=== PATIENT | female | born 1950 ===

== ENCOUNTER 2021-11-02 15:20 | Emergency (ER) | payer MEDICARE, SELFPAY ==
--- NOTE | 2021-11-02 15:30 | ED.URI ---
HPI - URI/Sore Throat General Chief Complaint: Upper Respiratory Infection Stated Complaint: cough aches and sore throat Time Seen by Provider: 11/02/21 15:31 Source: patient and RN notes reviewed History of Present Illness HPI Narrative: Patient is a 71-year-old female who presents the urgent with complaints of headache, chills, sore throat, cough and body aches. Patient states that started 5 days ago and does seem to be getting better. Patient denies any fever, nausea, vomiting. States that she has been taking Claritin and Coricidin. Patient has been vaccinated for Covid and denies of any other illness in the home. No other complaints. No acute distress noted. Patient aware of the plan of care. Some parts of this dictation were generated by voice recognition software and may contain typographical and/or grammatical inaccuracies. Related Data Home Medications Medication Instructions Recorded Confirmed aspirin 81 mg PO DAILY 11/02/21 11/02/21 estradiol 0.5 mg PO DAILY 11/02/21 11/02/21 fluticasone propionate See Rx Instructions .ROUTE .COMPLEX 11/02/21 11/02/21 gabapentin 300 mg PO BID 11/02/21 11/02/21 irbesartan-hydrochlorothiazide 1 tablet PO DAILY 11/02/21 11/02/21 magnesium 200 mg PO DAILY 11/02/21 11/02/21 meloxicam 7.5 mg PO BID 11/02/21 11/02/21 multivitamin [Daily Multi-Vitamin] 1 tablet PO DAILY 11/02/21 11/02/21 omeprazole 20 mg PO DAILY 11/02/21 11/02/21 Allergies Allergy/AdvReac Type Severity Reaction Status Date / Time ketorolac [From Toradol] Allergy Rash Verified 11/02/21 15:44 Review of Systems Review of Systems: CONSTITUTIONAL: Denies fever, chills, or sweats. EYES: Denies visual changes, redness, or discharge. ENT: Reports rhinorrhea, congestion CARDIOVASCULAR: Denies chest pain, palpitations, or edema. RESPIRATORY: Reports of cough without dyspnea GASTROINTESTINAL: Denies abdominal pain, nausea, vomiting, or diarrhea. GENITOURINARY: Denies dysuria or hematuria. SKIN: Denies rash or itching. MUSCULOSKELETAL: Denies back pain, joint pain, or myalgia. NEUROLOGIC: Reports of mild posterior headache All other systems reviewed are negative, except as documented in HPI. PMFSH Comments At the time of my signature, I reviewed and agree with the nursing past medical, surgical, social, and family history. There is no relevant family history pertinent to the patient complaint. Exam Narrative: GENERAL: This is a well-nourished, well-developed patient, in no apparent distress. HEAD: normocephalic, atraumatic. EYES: PERRL. Sclera clear/white. Vision is grossly intact. EARS: External ears normal, auditory canals clear and without drainage, TMs normal without perforation. Hearing grossly intact. NOSE: External nose normal with no obvious nasal discharge. Bilateral erythemic nares with clear yellow rhinorrhea THROAT: Mucous membranes moist, posterior pharynx clear. Moderate postnasal drainage NECK: Neck supple, CARDIOVASCULAR: Regular rate and rhythm without murmurs, gallops, or rubs. RESPIRATORY: Clear to auscultation. Breath sounds equal bilaterally. No wheezes, rales, or rhonchi. SKIN: warm, intact with no suspicious lesions or rash, good texture and turgor. NEURO: awake, alert, and oriented to person, place and time. There were no obvious focal neurologic abnormalities. EXTREMITIES: No clubbing, cyanosis, or edema. Course Course Level of Care: Express Care Visit Vital Signs Vital signs: Vital Signs Temperature 98.3 F 11/02/21 15:35 Pulse Rate 100 11/02/21 15:35 Respiratory Rate 18 11/02/21 15:35 Blood Pressure 134/63 11/02/21 15:35 Pulse Oximetry 98 11/02/21 15:35 Temperature 98.3 F 11/02/21 15:55 Pulse Rate 100 11/02/21 15:55 Respiratory Rate 18 11/02/21 15:55 Blood Pressure 134/63 11/02/21 15:55 Pulse Oximetry 98 11/02/21 15:55 Reviewed MDM - URI/Sore Throat MDM Narrative Medical decision making narrative: Advised the patient to continue Claritin and start
[2021-11-02 15:35] VITALS: BP 134/63; PULSE 100; RESP 18; TEMP 36.8; O2SAT 98
[2021-11-02 15:55] VITALS: BP 134/63; PULSE 100; RESP 18; TEMP 36.8; O2SAT 98
== END 2021-11-02 16:00 | disposition home or self-care (01) ==
PROVIDERS: Emergency Provider Nurse Practitioner Family; PCP Family Medicine
DX: J32.9 Chronic sinusitis, unspecified (principal); I10 Essential (primary) hypertension; K21.9 Gastro-esophageal reflux disease without esophagitis; M19.90 Unspecified osteoarthritis, unspecified site
CPT/HCPCS: 99213; G0463

== ENCOUNTER 2025-09-20 11:44 | Emergency (ER) | payer MEDICARE, SELFPAY ==
[2025-09-20 11:50] VITALS: BP 125/71; PULSE 82; RESP 20; TEMP 36.3; O2SAT 95
--- OUTSIDE RECORDS SUMMARY | 2025-09-20 12:21 | XMS_ITS | Clinical Summary ---
[facility] Address [address] [place] [address] Care Team Providers Care Stage Technician Name Role Phone Laura Aly MD Primary Care Provider Allergies Active Allergy Reactions Criticality Noted Date Comments Tramadol Rash Medium 11/04/2018 Medications omeprazole (PriLOSEC) 20 mg capsule take 1 capsule by oral route every day before a meal 0 0 3 Active multivitamin (MULTI-DAY) tablet tablet take 1 tablet by oral route every day with food 0 0 6 Active aspirin (ASPIR-81) 81 mg tablet take 1 tablet by oral route every day 0 0 6 Active calcium carbonate (OS-FARHAD) 1,500 mg (600 mg of elemental calcium) tablet Take by mouth. Active azelastine (ASTELIN) 137 mcg (0.1 %) nasal spray 1 Active fluticasone propionate (FLONASE) 50 mcg/actuation nasal spray 1 Active meloxicam (MOBIC) 7.5 mg tablet Take 1 tablet (7.5 mg total) by mouth daily as needed 0 Active magnesium gluconate 200 mg tabletIndicati ons:hypomagnes emia 1 tablet (200 mg total) Active loratadine (CLARITIN) 10 mg tablet Take 10 mg by mouth daily Active gabapentin (NEURONTIN) 300 mg capsule 1 1 Active ciclopirox (PENLAC) 8 % solution APPLE TO AFFECTED NAILS AT BEDTIME 3 Active ALPRAZolam (XANAX) 0.25 mg tablet Take 1 tablet (0.25 mg total) by mouth 3 (three) times a day as needed 3 Active sulfamethoxazo le-trimethopri m (BACTRIM DS) 800-160 mg per tablet Take 1 tablet by mouth 2 (two) times a day 10 tablet 5 Active estradioL (ESTRACE) 0.5 mg tablet TAKE 1 TABLET EVERY DAY 90 tablet 3 5 Active estradioL (ESTRACE) 0.5 mg tabletIndicati ons:Vasomotor Symptoms associated with Menopause Take 1 tablet (0.5 mg total) by mouth daily Take 1 tablet (0.5 mg) by mouth daily. 90 tablet 2 5 025 Discontinued Active Problems Problem Noted Date Diagnosed Date Hormone replacement therapy 10/25/2022 Assessment & Plan (01/14/2025 1:23 PM CDT): Plan to continue current dose of oral estradiol 0.5 mg daily as directed. Revisited risks associated with HRT today, including increase risk of DVT/PE, stroke. Assessment & Plan (11/05/2023 8:26 AM XM1 TANK DRIVER): Risks and benefits of hormone replacement (HRT) for vasomotor symptoms related to menopause discussed. Patient aware risks associated with HRT include increased risk of blood clots, heart attack, stroke, and increased risk of breast cancer. Patient aware risks of continuing HRT after the age of 65 increase. Patient verbalizes understanding of risk and benefits and wishes to proceed with HRT. High risk medication consent signed. Assessment & Plan (10/25/2022 8:50 PM XM1 TANK DRIVER): Risks vs benefits of HRT discussed such as increased risk of blood clots leading to possible heart attack, stroke, and increased risk of breast cancer; pt. verbalizes understanding and wishes to proceed with HRT. Refill on estradiol sent to pharmacy. Kidney disorder 02/06/2014 Overview (12/26/2016): Kidney problem Hypertension 02/06/2014 Overview (12/26/2016): Hypertension Hyperlipidemia 02/06/2014 Overview (12/27/2016): Hyperlipemia Diabetes mellitus 02/06/2014 Overview (12/27/2016): Diabetes mellitus Disorder of liver 02/06/2014 Overview (12/27/2016): Liver disease Encounters Date Type Department Care Team Description 08/30/2025 Telephone [place] [facility] [address] [place] [address] Paty Deutsch WRINGER OPERATOR Add Hysterectomy from Last 3 Months Surgical History Surgery Date Site/Laterality Comments OTHER SURGICAL HISTORY 1962 : spontaneous OTHER SURGICAL HISTORY 1962 : OTHER SURGICAL HISTORY 1966 : OTHER SURGICAL HISTORY 1984 : TOTAL ABDOMINAL HYSTERECTOMY W/ BILATERAL SALPINGOOPHORECTOMY ABDULLAHI with BSO BLADDER SUSPENSION Bladder tie up Medical History Medical History Date Comments Hypertension hypertension Hx Other Medical 1962 ; Outc ome: Unknown sex Hx Other Medical 1962 ; Outc ome: Male Hx Other Medical 1966 ; Outc ome: Female Hx Other Medical 1984 ; Outc ome: Male Family History Medical History Relation Name Comments Breast cancer Cousin Cancer, breast ; Colon cancer Father Cancer, colon; Liver cancer Father's Sister Cancer, live r; Diabetes Mother Diabetes mellit us; Hypertension Mother Hypertension; Other Mother's Brother heart murmu r; Diabetes Mother's Sister Diabetes yaquelin litus; Relation Name Status Comments Cousin Father Father's Sister Mother Mother's Brother Mother's Sister Social History Tobacco Use Types Packs/Day Years Used Date Smoking Tobacco: Never Smokeless Tobacco: Never Tobacco Cessation:Counseling Given: Not Answered Alcohol Use Standard Drinks/Week Comments Yes 0 (1 standard drink = 0.6 oz pur e alcohol) occasionally PHQ-2 Answer Date Recorded PHQ-2 Total Score (If total score is 3 or more points, staff should administer the PHQ-9) 0 11/04/2023 Comments No Sex and Gender Information Value Date Recorded Sex Assigned at Not on file Legal Sex Female 1:15 PM XM1 TANK DRIVER Gender Identity Not on file Sexual Orientation Not on file Obstetrics History Para Term AB IAB SAB Ectopic Multiple Livin g Live Births 4 3 3 1 1 3 3 Date Outcome GA Total Labor Labor/2nd/3rd Weight Sex Type Anes PTL Dee A1 A5 Name Clin Term Vag-S pont Living Term Vag-S pont Living Term Vag-S pont Living SAB Last Filed Vital Signs Vital Sign Reading Time Taken Comments Blood Pressure 116/62 01/14/2025 10:55 AM CDT Pulse 76 08/25/2021 12:01 PM XM1 TANK DRIVER Temperature 36.6 C (97.8 F) 07/20/2021 11:03 AM CDT Respiratory Rate 18 07/20/2021 11:03 AM CDT Oxygen Saturation 93% 07/20/2021 11:03 AM CDT Inhaled Oxygen Concentration - - Weight 87.5 kg (193 lb) 01/14/2025 10:55 AM CDT Height 157.5 cm (5' 2) 01/14/2025 10:55 AM CDT Body Mass Index 35.3 01/14/2025 10:55 AM CDT Plan of Treatment Health Maintenance Due Date Last Done Comments Albumin Creatinine Ratio, Urine 1949 Fall Risk Assessment 1949 Hepatitis C Screening 1949 Dilated Eye Exam 1949 Foot Exam 1949 Lipid Panel 1949 DTaP/Tdap/Td Vaccine (1 - Tdap) 1960 Hepatitis B Screening 1967 Osteoporosis Screening-Bone Density Scan 01/10/2023 01/10/2021, 01/10/2021, 03/15/2018, Additional history exists Depression Screening 11/04/2024 11/04/2023, 10/23/2022, 01/03/2021, Additional history exists Well Visit 65+ 11/04/2024 11/04/2023 Covid-19 Vaccine (3 - 2024-2 6 season) 2025 01/16/2021, 12/19/2020 Influenza Vaccine (#1) 2025 , 07/16/2021, 06/24/2020 Hemoglobin A1C 07/16/2025 01/14/2025 eGFR 01/14/2026 01/14/2025 Pneumococcal vaccine 65+ Completed 08/08/2018, 1011/2015 Zoster Vaccine Completed 06/19/2022, 03/30/2022 Breast Cancer Screening-Mammogram Discontinued 12/16/2024, 12/16/2024, 02/04/2023, Additional history exists Procedures Procedure Name Priority Date/Time Associated Diagnosis Comments EGFR Routine 01/14/2025 11:46 AM CDT Heat intolerance Thinning hair Personal history of diabetes mellitus Other fatigue HEMOGLOBIN A1C Routine 01/14/2025 11:46 AM CDT Heat intolerance Thinning hair Personal history of diabetes mellitus Other fatigue SCREENING MAMMOGRAM BILATERAL W JASON Schedule Routine, Read Routine (OP Routine) 11/30/2021 DEXA AXIAL SKELETON BONE DENSITY 1 OR MORE SITES Schedule Routine, Read Routine (OP Routine) 03/15/2018 Asymptomatic menopausal state Screening for osteoporosis from Last 3 Months or Most Recently Relevant to Health Maintenance Results * (ABNORMAL) eGFR (01/14/2025 11:46 AM CDT) eGFR 48(L) >=60 mL/min/1. 73 m2 Comment: Interpretive Data Reference Interval Normal >/= 90 mL/min/1.73m2 Mildly decreased* 60 - 89 mL/min/1.73m2 Mildly to moderately decreased 45 - 59 mL/min/1.73m2 Moderately to severely decreased 30 - 44 mL/min/1.73m2 Severely decreased 15 - 29 mL/min/1.73m2 Kidney Failure < 15 mL/min/1.73m2 *Relative to young adult level Estimated glomerular filtration rate is determined by the 2020 CKD-EPI equation recommended by the National Kidney Foundation (A Unifying Approach to GFR Estimation: Recommendations of the NKF-ASK Task Force on Reassessing the Inclusion of Race in Diagnosing Kidney Disease, JASN 2020). The CKD-EPI equation should not be used for patients with unstable renal function and has not been validated in children and those over 70. Current interpretive data was last reviewed 2021. Blood 01/14/2025 11:4 6 AM CDT 01/14/2025 12:56 PM CDT us Paty Deutsch NP LAB BLOOD ORDERABLES Final Resul t [facility] ([place]) [address] Department [place] [address] * (ABNORMAL) Hemoglobin A1c (01/14/2025 11:46 AM CDT) Hgb A1C 6.9(H) 4.0 - 5.6 % Estimated Average Glucose 151 mg/dL [facility] ([place]) Comment: The ADA recommends reporting an estimated Average Glucose (eAG) with all Hemoglobin A1c results using the equation derived from a study of 507 normal and diabetic adults. Minority populations were underrepresented and children were not included. (Diabetes Care 31:7711-6852, 2008). The eAG is not equivalent to a fasting glucose. Blood 01/14/2025 11:4 6 AM CDT 01/14/2025 12:56 PM CDT us Paty Deutsch NP LAB BLOOD ORDERABLES Final Resul t [facility] ([place]) [address] [facility] [place] [address] * Screening Mammogram Bilateral W Jason (11/30/2021) Anatomical Region Laterality Modality Breast Bilateral Mammography us Jihan Esparza NP IMG MAMMO PROCEDURES Phuong l Result * Dexa Axial Skeleton Bone Density 1 Or 2 Site (03/15/2018) Anatomical Region Laterality Modality Body N/A Radiographic Felicia ging us Jihan Esparza NP IMG DXA PROCEDURES Final Result from Last 3 Months or Most Recently Relevant to Health Maintenance Insurance [employer] MEDICARE HMO Care Teams Stage Technician Relationship Specialty Start Date End Date Laura Aly MD PCP - General 07/20/21
--- OUTSIDE RECORDS SUMMARY | 2025-09-20 12:21 | XMS_ITS | Encounter Summary ---
Author Organization [facility] Address [address] [place] [phone] Phone Care Team Providers Care Water And Sewer Systems Supervisor Name Role Phone aLura Aly MD Primary Care Provider Vern Galvez MD Unavailable Melissa Dominguez RN Unavailable UnavailAnali Davis APRN, MANAGER MERCHANDISING Primary Care Prov ider Reason for Visit * Reason Comments Medication Refill Encounter Details Date Type Department Care Team (Late st Contact Info) Description 03/21/2023 Refill [facility] [address] [place] [address] [place] [id number] [place] [address] Medication Refill Social History Tobacco Use Types Packs/Day Years Used Date Smoking Tobacco: Never Smokeless Tobacco: Never Alcohol Use Standard Drinks/Week Comments Yes 0 (1 standard drink = 0.6 oz pur e alcohol) occasionally holidays PHQ-2 Answer Date Recorded Total Score - Questions 1-9 0 01/0 01/2022 Sexually Active Control Partners Comments Not Currently Comments No Sex and Gender Information Value Date Recorded Sex Assigned at Not on file Legal Sex Female 7:42 PM CDT Gender Identity Not on file Sexual Orientation Not on file 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 Requested Prescriptions Pending Prescriptions Disp Refills gabapentin (NEURONTIN) 300 MG Capsule [Pharmacy Med Name: GABAPENTIN 300 MG Capsule] 90 Capsule 1 Sig: TAKE 1 CAPSULE THREE TIMES DAILY Not Delegated - Anticonvulsants Excluding Benzodiazepines Protocol Failed - 03/21/2023 11:16 AM Failed - This refill cannot be delegated Passed - Visit with relevant provider in past 12 months or upcoming 90 days Recent Visits Date Type Provider Dept 01/08/23 Office Visit Laura Aly MD [facility] 10/10/22 Office Visit Laura Aly MD [facility] 08/28/22 Office Visit Laura Aly MD [facility] 07/17/22 Office Visit Laura Aly MD [facility] 06/05/22 Office Visit Laura Aly MD [facility] 04/26/22 Office Visit Laura Aly MD [facility] 04/12/22 Office Visit Laura Aly MD [facility] Showing recent visits within past 365 days and meeting all other requirements Future Appointments Date Type Provider Dept 04/02/23 Appointment Laura Aly MD [facility] Showing future appointments within next 90 days and meeting all other requirements documented in this encounter Plan of Treatment Upcoming Encounters Date Type Department Care Team (Late st Contact Info) Description 10/25/2025 9:45 AM GERENTOLOGICAL PHYSIOTHERAPIST Office Visit [facility] - Family Medicine - [place] [address] [place] [address] Anali Wells APRN, MANAGER MERCHANDISING [address] [address] documented as of this encounter Visit Diagnoses Not on filedocumented in this encounter Additional Health Concerns Infection Onset Date Last Indicated Resolved Time COVID - 19 07/25/2023 07/25/2023 08/04/2023 12:1 7 AM GERENTOLOGICAL PHYSIOTHERAPIST COVID - 19 10/04/2023 10/04/2023 10/14/2023 12:1 6 AM GERENTOLOGICAL PHYSIOTHERAPIST Assessment Noted Time PHQ-9 Depression Total Score: 0 11/22/19 21 2:41 PM GERENTOLOGICAL PHYSIOTHERAPIST documented as of this encounter Care Teams Water And Sewer Systems Supervisor Relationship Specialty Start Date End Date Laura Aly MD PCP - General Family Medicine 07/27/20 11/25/23 Anali Wells APRN, MANAGER MERCHANDISING [id number] [address] PCP - General Advanced Practice Nurse 11/26/23 Vern Galvez MD Consulting Physician Cardiovascular Disease - Cardiology 06/01/22 09/24/24 Melissa Self RN ID Registered Nurse Cardiology 07/09/22 09/24/24 documented as of this encounter
--- OUTSIDE RECORDS SUMMARY | 2025-09-20 12:21 | XMS_ITS | Encounter Summary ---
Author Organization [facility] Address [address] [place] [address] Phone Care Team Providers Care Energy Efficient Site Manager Name Role Phone Laura Aly MD Primary Care Provider Vern Galvez MD Unavailable Melissa Dominguez RN Unavailable UnavailAnali Davis APRN, PROSPECTING DRILLER Primary Care Prov ider Reason for Visit * Reason Comments Medication Refill Encounter Details Date Type Department Care Team (Late st Contact Info) Description 10/10/2023 Refill [facility] - Family Medicine [facility] [address] [place] [id number] [place] [id number] [place] [address] Medication Refill Social History Tobacco Use Types Packs/Day Years Used Date Smoking Tobacco: Never Smokeless Tobacco: Never Alcohol Use Standard Drinks/Week Comments Yes 0 (1 standard drink = 0.6 oz pur e alcohol) occasionally holidays [facility] Utilities Answer Date Recorded In the past 12 months has [employer], oil, or water [employer] threatened to shut off services in your home? No 10/04/2023 Social Connection and Isolation Panel Answer Date Recorded In a typical week, how many times do you talk on the phone with family, friends, or neighbors? More than three times a week 10/04/2023 Frequency of Social Gatherin gs with Friends and Family Not on file 10/04/2023 Attends Voodoo Services Not on file 10/04 Active Member of Clubs or Organizations Not on f ile 10/04/2023 Attends Club or Organization Meetings Not on nancy e 10/04/2023 Marital Status Not on file 10/04/2023 AUDIT-C Answer Date Recorded Q1: How often do you have a drink containing alc ohol? Never 10/04/2023 Average Number of Drinks Not on file 024 Frequency of Binge Drinking Not on file 09/23 Overall Financial Resource Strain (CARDIA) Answe r Date Recorded How hard is it for you to pa y for the very basics like food, housing, medical care, and heating? Not hard at all 10/04/2023 PHQ-2 Answer Date Recorded Total Score - Questions 1-9 0 09/23 [facility] - Occupational Stress Questionnaire Answer Date Recorded Do you feel stress - tense, restless, nervous, or anxious, or unable to sleep at night because your mind is troubled all the time - these days? Only a little 10/04/2023 Exercise Vital Sign Answer Date Recorde d On average, how many days pe r week do you engage in moderate to strenuous exercise (like a brisk walk)? 4 days Minutes of Exercise per Session Not on file 10/04/2023 Hunger Vital Sign Answer Date Recorded Within the past 12 months, y ou worried that your food would run out before you got the money to buy more. Never true 10/04/19 24 Within the past 12 months, t he food you bought just didn't last and you didn't have money to get more. Never true 10/04/2023 PRAPARE - Transportation Answer Date Re corded In the past 12 months, has l ack of transportation kept you from medical appointments or from getting medications? No 09/23 In the past 12 months, has l ack of transportation kept you from meetings, work, or from getting things needed for daily living? No 10/04/2023 Housing Stability Vital Sign Answer Felipe e Recorded In the last 12 months, was t here a time when you were not able to pay the mortgage or rent on time? No 10/04/2023 Number of Places Lived in the Last Year Not on f ile 10/04/2023 Unstable Housing in the Last Year Not on file 10/04/2023 Sexually Active Control Partners Comments Not Currently [...] encounter Miscellaneous Notes * Telephone Encounter - Kady Torres RN - 10/11/2023 8:32 AM CARBONIZER TESTER Medication failed the protocol, provider to review and approve the medication order if appropriate. Requested Prescriptions Pending Prescriptions Disp Refills gabapentin (NEURONTIN) 300 MG Capsule [Pharmacy Med Name: GABAPENTIN 300 MG Capsule] 90 Capsule 3 Sig: TAKE 1 CAPSULE THREE TIMES DAILY Not Delegated - Anticonvulsants Excluding Benzodiazepines Protocol Failed - 10/10/2023 1:10 PM Failed - This refill cannot be delegated Passed - Visit with relevant provider in past 12 months or upcoming 90 days Recent Visits Date Type Provider Dept 10/04/23 Office Visit Sigrid Diez PAC [facility] 07/25/23 Office Visit Laura Aly MD [facility] 04/02/23 Office Visit Laura Aly MD [facility] 01/08/23 Office Visit [facility] MD [facility] [place] Showing recent visits within past 365 days and meeting all other requirements Future Appointments No visits were found meeting these conditions. Showing future appointments within next 90 days and meeting all other requirements ONIZER TESTER documented in this encounter Plan of Treatment Upcoming Encounters Date Type Department Care Team (Late st Contact Info) Description 10/25/2025 9:45 AM CARBONIZER TESTER Office Visit [facility] - Family Medicine - [place] [address] [place] [address] Anali Wells APRN, PROSPECTING DRILLER [address] [address] documented as of this encounter Visit Diagnoses Not on filedocumented in this encounter Additional Health Concerns Infection Onset Date Last Indicated Resolved Time COVID - 19 10/04/2023 10/04/2023 10/14/2023 12:1 6 AM CARBONIZER TESTER Assessment Noted Time PHQ-9 Depression Total Score: 0 10/04/19 4:15 PM CARBONIZER TESTER documented as of this encounter Care Teams Energy Efficient Site Manager Relationship Specialty Start Date End Date Laura Aly MD PCP - General Family Medicine 07/27/20 11/25/23 Anali Wells APRN, PROSPECTING DRILLER [id number] [address] PCP - General Advanced Practice Nurse 11/26/23 Vern Galvez MD Consulting Physician Cardiovascular Disease - Cardiology 06/01/22 09/24/24 Melissa Self RN [place] Registered Nurse Cardiology 07/09/22 09/24/24 documented as of this encounter
--- OUTSIDE RECORDS SUMMARY | 2025-09-20 12:21 | XMS_ITS | Encounter Summary ---
Author Organization [facility] Address [address] [place] [address] Phone Care Team Providers Care Sueding Machine Tender Name Role Phone Laura Aly MD Primary Care Provider [phone] Vern Galvez MD Unavailable Melissa Dominguez RN Unavailable UnavailAnali Davis APRN, CONSULTING SME Primary Care Prov ider Reason for Visit * Reason Comments Medication Refill Encounter Details Date Type Department Care Team (Late st Contact Info) Description 11/05/2022 Refill [facility] [address] [place] [address] [place] [address] [place] [address] Medication Refill Social History Tobacco Use Types [...] file Not on file Not on file COVID-19 Exposure Response Date Recorded In the last 10 days, have yo u been in contact with someone who was confirmed or suspected to have Coronavirus/COVID-19? No / Unsure 10/10/2022 11:02 AM CURB HOP documented as of this encounter Miscellaneous Notes * Telephone Encounter - Julee Krishnan RN - 11/05/2022 1:32 PM CST Medication failed the protocol, provider to review and approve the medication order if appropriate. Requested Prescriptions Pending Prescriptions Disp Refills meloxicam (MOBIC) 7.5 MG Tablet [Pharmacy Med Name: MELOXICAM 7.5 MG Tablet] 90 Tablet 0 Sig: TAKE 1 TABLET TWICE DAILY NEEDED FOR MODERATE OR MORE SEVERE PAIN NSAIDs Protocol Failed - 11/05/2022 10:24 AM Failed - Normal serum creatinine in past 12 months CREATININE, BLOOD Date Value Ref Range Status 04/26/2022 1.14 (H) 0.60 - 1.10 mg/dL Final Failed - Not delegated, patient not between 1 and 65 years of age Passed - Visit with relevant provider in past 12 months or upcoming 90 days Recent Visits Date Type Provider Dept 10/10/22 Office Visit Laura Aly MD [facility] 08/28/22 Office Visit Laura Aly MD [facility] 07/17/22 Office Visit Laura Aly MD [facility] 06/05/22 Office Visit Laura Aly MD [facility] 04/26/22 Office Visit Laura Aly MD [facility] 04/12/22 Office Visit Laura Aly MD [facility] 03/01/22 Office Visit Laura Aly MD [facility] 01/29/22 Office Visit Luis M Angel APRN, CONSULTING SME [facility] 01/04/22 Office Visit Sigrid Diez PAC [facility] Showing recent visits within past 365 days and meeting all other requirements Future Appointments Date Type Provider Dept 01/08/23 Appointment Laura Aly MD [facility] Showing future appointments within next 90 days and meeting all other requirements Passed - No matching NSAID med order in past 45 days No matching medication orders between 09/21/2022 1:32 PM and 11/05/2022 1:32 PM Passed - AST less than 55 or ALT less than 90 in past 12 months SGOT (AST) Date Value Ref Range Status 04/26/2022 13 <=32 U/L Final SGPT (ALT) Date Value Ref Range Status 04/26/2022 16 <=41 U/L Final Passed - HGB greater than 10 or HCT greater than 30 in past 12 months HEMOGLOBIN (HGB) Date Value Ref Range Status 04/26/2022 12.9 12.0 - 15.8 g/dL Final HEMATOCRIT (HCT) Date Value Ref Range Status 04/26/2022 40.4 36.0 - 47.0 % Final HOP documented in this encounter Plan of Treatment Upcoming Encounters Date Type Department Care Team (Late st Contact Info) Description 10/25/2025 9:45 AM CURB HOP Office Visit [facility] - Family Medicine [facility] [address] [place] [phone] Anali Wells, SUPERVISOR RUBBER COVERING, CONSULTING SME [address] [phone] documented as of this encounter Visit Diagnoses Not on filedocumented in this encounter Additional Health Concerns Infection Onset Date Last Indicated Resolved Time COVID - 19 07/25/2023 07/25/2023 08/04/2023 12:1 7 AM CURB HOP COVID - 19 10/04/2023 10/04/2023 10/14/2023 12:1 6 AM CURB HOP Assessment Noted Time PHQ-9 Depression Total Score: 0 11/22/19 21 2:41 PM CURB HOP documented as of this encounter Care Teams Sueding Machine Tender Relationship Specialty Start Date End Date Laura Aly MD PCP - General Family Medicine 07/27/20 11/25/23 Anali Wells APRN, CONSULTING SME [address] [address] PCP - General Advanced Practice Nurse 11/26/23 Vern Galvez MD Consulting Physician Cardiovascular Disease - Cardiology 06/01/22 09/24/24 Melissa Self RN [place] Registered Nurse Cardiology 07/09/22 09/24/24 documented as of this encounter
--- OUTSIDE RECORDS SUMMARY | 2025-09-20 12:21 | XMS_ITS | Encounter Summary ---
Author Organization [facility] Address [address] [place] [address] Phone Care Team Providers Care Membership Advisor Name Role Phone Anali Wells APRN, CHEMICAL PROCESS ENGINEER Primary Care Prov ider Reason for Visit * Reason Onset Date Comments Advice Only 09/20/2025 Blood in Urine 09/20/2025 Urinary Pain 09/20/2025 Encounter Details Date Type Department Care Team (Late st Contact Info) Description 09/20/2025 Nurse Triage [facility] [address] [place] [address] Anali Wells APRN, CHEMICAL PROCESS ENGINEER [address] [address] Advice Only; Blood in Urine; Urinary Pain Social History Tobacco Use Types Packs/Day Years Used Date Smoking Tobacco: Never Smokeless Tobacco: Never Alcohol Use Standard Drinks/Week Comments Yes 0 (1 standard drink = 0.6 oz pur e alcohol) occasionally holidays [facility] Utilities Answer Date Recorded In the past 12 months has sones, gas, oil, or water company threatened to shut off services in your home? Patient declined 04/07/2024 Social Connection and Isolation Panel Answer Date Recorded In a typical week, how many times do you talk on the phone with family, friends, or neighbors? Patient declined 04/07/2024 How often do you get togethe r with friends or relatives? Patient declined 04/07/2024 How often do you attend uatsdin or anabaptist serv ices? Patient declined 04/07/2024 Do you belong to any clubs o r organizations such as uatsdin groups, unions, fraternal or athletic groups, or school groups? Patient declined 04/07/2024 How often do you attend meet ings of the clubs or organizations you belong to? Patient declined 04/07/2024 Are you , , di vorced, , never , or living with a partner? Patient declined 04/07/2024 AUDIT-C Answer Date Recorded Q1: How often do you have a drink containing alc ohol? Patient declined 04/07/2024 Q2: How many drinks containi ng alcohol do you have on a typical day when you are drinking? Patient declined 04/07/2024 Q3: How often do you have si x or more drinks on one occasion? Patient declined 04/07/2024 Overall Financial Resource Strain (CARDIA) Answe r Date Recorded How hard is it for you to pa y for the very basics like food, housing, medical care, and heating? Patient declined 04/07/2024 PHQ-2 Answer Date Recorded Total Score - Questions 1-9 0 09/23 [facility] - Occupational Stress Questionnaire Answer Date Recorded Do you feel stress - tense, restless, nervous, or anxious, or unable to sleep at night because your mind is troubled all the time - these days? Patient declined 04/07/2024 Exercise Vital Sign Answer Date Recorde d On average, how many days pe r week do you engage in moderate to strenuous exercise (like a brisk walk)? Patient declined On average, how many minutes do you engage in exercise at this level? Patient declined 04/07/2024 Hunger Vital Sign Answer Date Recorded Within the past 12 months, y ou worried that your food would run out before you got the money to buy more. Patient declined Within the past 12 months, t he food you bought just didn't last and you didn't have money to get more. Patient declined PRAPARE - Transportation Answer Date Re corded In the past 12 months, has l ack of transportation kept you from medical appointments or from getting medications? Patient declined 04/07/2024 In the past 12 months, has l ack of transportation kept you from meetings, work, or from getting things needed for daily living? Patient declined 04/07/2024 Housing Stability Vital Sign Answer Felipe e Recorded In the last 12 months, was t here a time when you were not able to pay the mortgage or rent on time? No 10/04/2023 Number of Places Lived in the Last Year Not on f ile 10/04/2023 Unstable Housing in the Last Year Not on file 10/04/2023 Housing Stability Vital Sign Answer Felipe e Recorded In the last 12 months, was t here a time when you were not able to pay the mortgage or rent on time? Patient declined 04/07/20 24 Number of Times Moved in the Last Year Not on fi le 04/07/2024 At any time in the past 12 m [facility], were you homeless or living in a intermediate (including now)? Patient declined 04/07/2024 Sexually Active Control Partners Comments Not Currently [...] encounter Miscellaneous Notes * Telephone Encounter - Nella Asencio RN - 09/20/2025 10:05 AM AUTOMATIC PAD MAKING MACHINE OPERATOR SITUATION: 75 y.o. with blood in urine, pain with urination, and urinary symptoms. BACKGROUND: Patient contacting PCP office. Patient states that about 3 days ago she pain with urination. Patient states that in the mornings her urine has dark red blood with clots in it and then it gets framing consultant throughout the day. Per chart review, patient has a history of diabetes mellitus, kidney disorder, and chronic renal insufficiency (stage 3). ASSESSMENT: Symptom Description / Location: Blood in urine Pain with urination - pelvic pain when she has to urinate and during, rates pain as mild Urinary frequency/urgency Denies fever. LMP: Post-menopausal RECOMMENDATION: Caller agreeable to highest disposition listed: Go to Office or Video Visit Now, See in Office or Video Visit Today. Care advice provided per triage guideline. Caller verbalized understanding. Due to office unavailability within disposition, advised for patient to be seen at prompt care or urgent care. Caller agreeable to prompt care/urgent care. - Reason for Disposition: Pain or burning with passing urine (urination) Diabetes mellitus or weak immune system (e.g., HIV positive, cancer chemo, splenectomy, organ transplant, chronic steroids) . Protocols Used: Urination Pain - Female-A-OH Standing order available Urine - Blood In-A-OH See care advice and disposition for Guideline. First positive answer recorded, all responses to prior questions were negative. If symptoms increase, change or if new symptoms develop, call your health care provider or call back. Recommendations were based on caller information and is not a diagnosis. Verified and reviewed all triage information with caller. MATIC PAD MAKING MACHINE OPERATOR * Telephone Encounter - Vivien Gonzalez - 09/20/2025 10:04 AM CST Symptoms: Urine - Blood In, Urination Pain, Urine Symptoms Outcome: Transfer to mba intern queue Reason: Caller denied all higher acuity questions The caller accepted this outcome. Caller Denied: * Abuse suspected MATIC PAD MAKING MACHINE OPERATOR documented in this encounter Plan of Treatment Upcoming Encounters Date Type Department Care Team (Late st Contact Info) Description 10/25/2025 9:45 AM AUTOMATIC PAD MAKING MACHINE OPERATOR Office Visit [facility] [place] [address] Anali Wells APRN, CHEMICAL PROCESS ENGINEER [address] [phone] documented as of this encounter Visit Diagnoses Not on filedocumented in this encounter Additional Health Concerns Assessment Noted Time PHQ-9 Depression Total Score: 0 10/09/19 25 11:25 AM AUTOMATIC PAD MAKING MACHINE OPERATOR documented as of this encounter Care Teams Membership Advisor Relationship Specialty Start Date End Date Anali Wells APRN, CHEMICAL PROCESS ENGINEER #[address] [address] PCP - General Advanced Practice Nurse 11/26/23 documented as of this encounter
--- OUTSIDE RECORDS SUMMARY | 2025-09-20 12:21 | XMS_ITS | Encounter Summary ---
Author Organization [facility] Address [address] [place] [address] Phone Care Team Providers Care Stock And Station Agent Name Role Phone Laura Aly MD Primary Care Provider Vern Galvez MD Unavailable Melissa Dominguez RN Unavailable UnavailAnali Davis APRN, CLINICAL DATA ASSISTANT Primary Care Prov ider Reason for Visit * Reason Comments Medication Refill Encounter Details Date Type Department Care Team (Late st Contact Info) Description 07/15/2023 Refill [facility] [address] [place] [address] [place] [address] [place] [address] Medication Refill Social History Tobacco Use Types [...] Telephone Encounter - Julee Krishnan RN - 07/15/2023 5:10 PM CDT Medication failed the protocol, provider to review and approve the medication order if appropriate. Requested Prescriptions Pending Prescriptions Disp Refills meloxicam (MOBIC) 7.5 MG Tablet [Pharmacy Med Name: MELOXICAM 7.5 MG Tablet] 90 Tablet 2 Sig: TAKE 1 TABLET TWICE DAILY NEEDED FOR MODERATE OR MORE SEVERE PAIN NSAIDs Protocol Failed - 07/15/2023 10:28 AM Failed - Normal serum creatinine in past 12 months CREATININE, BLOOD Date Value Ref Range Status 03/27/2023 1.25 (H) 0.60 - 1.10 mg/dL Final Failed - Not delegated, patient not between 1 and 65 years of age Passed - Visit with relevant provider in past 12 months or upcoming 90 days Recent Visits Date Type Provider Dept 04/02/23 Office Visit Laura Aly MD [facility] 01/08/23 Office Visit Laura Aly MD [facility] 10/10/22 Office Visit Laura Aly MD [facility] 08/28/22 Office Visit Laura Aly MD [facility] 07/17/22 Office Visit Laura Aly MD [facility] Showing recent visits within past 365 days and meeting all other requirements Future Appointments No visits were found meeting these conditions. Showing future appointments within next 90 days and meeting all other requirements Passed - No matching NSAID med order in past 45 days No matching medication orders between 05/31/2023 5:10 PM and 07/15/2023 5:10 PM Passed - AST less than 55 or ALT less than 90 in past 12 months SGOT (AST) Date Value Ref Range Status 03/27/2023 13 <=32 U/L Final SGPT (ALT) Date Value Ref Range Status 03/27/2023 14 <=41 U/L Final Passed - HGB greater than 10 or HCT greater than 30 in past 12 months HEMOGLOBIN (HGB) Date Value Ref Range Status 03/27/2023 12.9 12.0 - 15.8 g/dL Final HEMATOCRIT (HCT) Date Value Ref Range Status 03/27/2023 41.0 36.0 - 47.0 % Final documented in this encounter Plan of Treatment Upcoming Encounters Date Type Department Care Team (Late st Contact Info) Description 10/25/2025 9:45 AM LEAD MINER BLASTING Office Visit [facility] - [facility] - [place] [address] [place] [address] Anali Wells APRN, CLINICAL DATA ASSISTANT #[address] [address] documented as of this encounter Visit Diagnoses Not on filedocumented in this encounter Additional Health Concerns Infection Onset Date Last Indicated Resolved Time COVID - 19 07/25/2023 07/25/2023 08/04/2023 12:1 7 AM LEAD MINER BLASTING COVID - 19 10/04/2023 10/04/2023 10/14/2023 12:1 6 AM LEAD MINER BLASTING Assessment Noted Time PHQ-9 Depression Total Score: 0 11/22/19 21 2:41 PM LEAD MINER BLASTING documented as of this encounter Care Teams Stock And Station Agent Relationship Specialty Start Date End Date Laura Aly MD PCP - General Family Medicine 07/27/20 11/25/23 Anali Wells APRN, CLINICAL DATA ASSISTANT #[address] [phone] PCP - General Advanced Practice Nurse 11/26/23 Vern Galvez MD Consulting Physician Cardiovascular Disease - Cardiology 06/01/22 09/24/24 Melissa Self RN [place] Registered Nurse Cardiology 07/09/22 09/24/24 documented as of this encounter
--- OUTSIDE RECORDS SUMMARY | 2025-09-20 12:21 | XMS_ITS | Encounter Summary ---
Author Organization [facility] Address [address] [place] [address] Phone Care Team Providers Care Occupational Health Rn Name Role Phone Laura Aly MD Primary Care Provider Vern Galvez MD Unavailable Melissa Dominguez RN Unavailable UnavailAnali Davis APRN, ANTHROPOLOGY LECTURER Primary Care Prov ider Reason for Visit * Reason Comments Medication Refill Encounter Details Date Type Department Care Team (Late st Contact Info) Description 05/15/2023 Refill [facility] [address] [place] [address] [place] [id number] [place] [address] Medication Refill Social History Tobacco [...] encounter Miscellaneous Notes * Telephone Encounter - Shanda Lerma RN - 05/15/2023 10:22 AM CDT Images from the original note were not included. Refill request too soon Azelastine HCl Dispensed Days Supply Quantity Provider Pharmacy azelastine 137 mcg (0.1 %) nasal spray aerosol 03/02/2023 90 120 mL Laura Aly MD [facility]... documented in this encounter Plan of Treatment Upcoming Encounters Date Type Department Care Team (Late st Contact Info) Description 10/25/2025 9:45 AM WAX BLENDER [facility] Visit [facility] - Family Medicine [facility] [address] [place] [address] Anali Wells, INTER COM INSTALLER, ANTHROPOLOGY LECTURER #[address] [address] documented as of this encounter Visit Diagnoses Not on filedocumented in this encounter Additional Health Concerns Infection Onset Date Last Indicated Resolved Time COVID - 19 07/25/2023 07/25/2023 08/04/2023 12:1 7 AM WAX BLENDER COVID - 19 10/04/2023 10/04/2023 10/14/2023 12:1 6 AM WAX BLENDER Assessment Noted Time PHQ-9 Depression Total Score: 0 11/22/19 21 2:41 PM WAX BLENDER documented as of this encounter Care Teams Occupational Health Rn Relationship Specialty Start Date End Date Laura Aly MD PCP - General Family Medicine 07/27/20 11/25/23 Anali Wells INTER COM INSTALLER, ANTHROPOLOGY LECTURER #[address] [address] PCP - General Advanced Practice Nurse 11/26/23 Vern Galvez MD Consulting Physician Cardiovascular Disease - Cardiology 06/01/22 09/24/24 Melissa Self RN [place] Registered Nurse Cardiology 07/09/22 09/24/24 documented as of this encounter
--- OUTSIDE RECORDS SUMMARY | 2025-09-20 12:21 | XMS_ITS | Encounter Summary ---
Author Organization [facility] Address [address] [place] [phone] Phone Care Team Providers Care Marine Designer Name Role Phone Laura Aly MD Primary Care Provider Vern Galvez MD Unavailable Melissa Dominguez RN Unavailable UnavailAnali Davis APRN, CREDIT CHECKER Primary Care Prov ider Reason for Visit * Reason Comments Medication Refill Encounter Details Date Type Department Care Team (Late st Contact Info) Description 01/18/2023 Refill [facility] Medicine [facility] [address] [place] [address] [place] [address] [place] [address] Medication Refill Social History Tobacco [...] suspected to have Coronavirus/COVID-19? No / Unsure 01/08/2023 10:53 AM CDT documented as of this encounter Miscellaneous Notes * Telephone Encounter - Julee Krishnan RN - 01/18/2023 11:39 AM CDT Medication failed the protocol, provider to review and approve the medication order if appropriate. Requested Prescriptions Pending Prescriptions Disp Refills meloxicam (MOBIC) 7.5 MG Tablet [Pharmacy Med Name: MELOXICAM 7.5 MG Tablet] 90 Tablet 0 Sig: TAKE 1 TABLET TWICE DAILY NEEDED FOR MODERATE OR MORE SEVERE PAIN NSAIDs Protocol Failed - 01/18/2023 10:28 AM Failed - Normal serum creatinine [...] 01/29/22 Office Visit Luis M Angel APRN, CREDIT CHECKER [facility] Showing recent visits within past 365 days and meeting all other requirements Future Appointments Date Type Provider Dept 04/02/23 Appointment [facility] [place] Showing future appointments within next 90 days and meeting all other requirements Passed - No matching NSAID med order in past 45 days No matching medication orders between 12/04/2022 11:39 AM and 01/18/2023 11:39 AM Passed - AST less than 55 or [...] 04/26/2022 40.4 36.0 - 47.0 % Final documented in this encounter Plan of Treatment Upcoming Encounters Date Type Department Care Team (Late st Contact Info) Description 10/25/2025 9:45 AM AGENCY DEVELOPMENT MANAGER Office Visit [facility] - Family Medicine [facility] [address] [place] [address] Anali Wells APRN, CREDIT CHECKER #[address] [phone] documented as of this encounter Visit Diagnoses Not on filedocumented in this encounter Additional Health Concerns Infection Onset Date Last Indicated Resolved Time COVID - 19 07/25/2023 07/25/2023 08/04/2023 12:1 7 AM AGENCY DEVELOPMENT MANAGER COVID - 19 10/04/2023 10/04/2023 10/14/2023 12:1 6 AM AGENCY DEVELOPMENT MANAGER Assessment Noted Time PHQ-9 Depression Total Score: 0 11/22/19 21 2:41 PM AGENCY DEVELOPMENT MANAGER documented as of this encounter Care Teams Marine Designer Relationship Specialty Start Date End Date Laura Aly MD PCP - General Family Medicine 07/27/20 11/25/23 Anali Wells APRN, CREDIT CHECKER #[address] [address] PCP - General Advanced Practice Nurse 11/26/23 Vern Galvez MD Consulting Physician Cardiovascular Disease - Cardiology 06/01/22 09/24/24 Melissa Self RN [place] Registered Nurse Cardiology 07/09/22 09/24/24 documented as of this encounter
--- OUTSIDE RECORDS SUMMARY | 2025-09-20 12:21 | XMS_ITS | Clinical Summary ---
Author Organization [facility] Address [address] [address] Phone Care Team Providers Care Delivery Truck Driver Heavy Name Role Phone Anali Wells APRN, METAL BUILDINGS ASSEMBLER Primary Care Prov ider Allergies Active Allergy Reactions Criticality Noted Date Comments Tramadol Hives Medium 11/04/2019 Medications acetaminophen (TYLENOL) 500 MG Tablet Take 1 Tab by mouth every 6 hours as needed for Pain or Fever (for temperature greater than 100.4 F). Do not exceed 3000 mg of acetaminophen in 24 hour from all sources. 02/16/20 16 Active Multiple Vitamin (MULTI-VITAMIN) Tablet Take 1 Tab by mouth daily. Active Calcium Carbonate (CALCIUM 600 PO) Take 1 Tab by mouth Every other day. Active estradiol (ESTRACE) 0.5 MG Tablet Take 1 Tab by mouth daily. Please stop taking estradiol for one week, and then resume. 90 Tab 3 04/19/20 17 Active aspirin EC 81 MG Tablet Delayed Response Take 81 mg by mouth daily. Active Loratadine (CLARITIN PO) Take by mouth. A ctive Magnesium 200 MG Tablet 200 mg. Active ALPRAZolam (XANAX) 0.25 MG TabletIndication s:Adjustment disorder with anxious mood Take 1 Tablet by mouth 3 times daily as needed for Anxiety. 15 Tablet 04/02/20 23 Active fluticasone (FLONASE) 50 MCG/ACT Suspension USE 1 TO 2 SPRAYS IN EACH NOSTRIL EVERY DAY DIRECTED 48 g 1 06/21/20 23 Active azelastine (ASTELIN) 0.1 % Solution USE 2 SPRAYS IN EACH NOSTRIL TWICE DAILY DIRECTED 120 mL 3 10/09/19 24 Active Chlorphen-Pseudo ephed-APAP (CORICIDIN D PO) Take by mouth. Active irbesartan-hydro CHLOROthiazide (AVALIDE) 300-12.5 MG Tablet TAKE 1 TABLET EVERY DAY 90 Tablet 3 04/19/20 25 Active omeprazole (PriLOSEC) 20 MG CAPSULE DELAYED RELEASE TAKE 1 CAPSULE EVERY DAY 90 Capsule 1 07/01/20 25 Active gabapentin (NEURONTIN) 300 MG Capsule TAKE 1 CAPSULE BY MOUTH THREE TIMES A DAY 90 Capsule 2 07/15/20 25 Active amLODIPine (NORVASC) 5 MG TabletIndication s:Primary hypertension Take 1 Tablet by mouth daily. 90 Tablet 1 08/06/20 25 Active meloxicam (MOBIC) 7.5 MG TabletIndication s:Lumbar spondylosis Take 1 Tablet by mouth daily. 90 Tablet 09/06/20 25 Active meloxicam (MOBIC) 7.5 MG TabletIndication s:Lumbar spondylosis Take 1 Tablet by mouth daily. 90 Tablet 06/15/20 25 025 Discontinu ed(Reorder ) amoxicillin (AMOXIL) 875 MG TabletIndication s:Acute non-recurrent frontal sinusitis Take 1 Tablet by mouth 2 times daily for 10 days. 20 Tablet 08/24/20 25 025 Active Problems Problem Noted Date Diagnosed Date Chronic renal insufficiency, stage 3 (moderate) 2025 History of colon polyps 06/02/2024 Hormone replacement therapy 10/25/2022 Overview (11/26/2023): Last Assessment & Plan: Risks and benefits of hormone replacement (HRT) [...] with HRT. High risk medication consent signed. Primary hypertension 07/17/2022 Diet-controlled diabetes mellitus 03/01/2022 Primary osteoarthritis of left knee 11/11/2019 Lumbar spinal stenosis 03/06/2017 Tear of medial meniscus of left knee, current Diabetes mellitus 02/06/2014 Overview (11/26/2023): Diabetes mellitus Disorder of liver 02/06/2014 Overview (11/26/2023): Liver disease Hyperlipidemia 02/06/2014 Overview (11/26/2023): Hyperlipemia Kidney disorder 02/06/2014 Overview (11/26/2023): Kidney problem Encounters Date Type Department Care Team Description 09/20/2025 Nurse Triage [facility] [address] [place] [phone] Anali Wells APRN, METAL BUILDINGS ASSEMBLER Advice Only; Blood in Urine; Urinary Pain 09/06/2025 [facility]ill [facility] [place] [address] Anali Wells APRN, METAL BUILDINGS ASSEMBLER Medication Refill 08/24/2025 2:15 PM DRY CAN TENDER Office Visit [facility] [address] [place] [address] Anali Wells APRN, METAL BUILDINGS ASSEMBLER Acute non-recurrent frontal sinusitis (Primary Dx); Type 2 diabetes mellitus with hyperglycemia, without long-term current use of insulin Discharge Disposition: Discharged to home or Selfcare 08/23/2025 9:18 PM DRY CAN TENDER - 08/23/2025 10:45 PM DRY CAN TENDER Emergency [facility] [address] [place] [address] Andrea Loya, Dizziness Discharge Disposition: Discharged to home or Selfcare 08/23/2025 Travel 08/06/2025 Refill [facility] [place] [address] Anali Wells APRN, METAL BUILDINGS ASSEMBLER Medication Refill 07/22/2025 [facility]phone [facility] [address] [place] [phone] Anali Wells APRN, METAL BUILDINGS ASSEMBLER Results 07/15/2025 9:00 AM CDT Office Visit [facility] [address] [place] [address] Anali Wells APRN, METAL BUILDINGS ASSEMBLER Annual physical exam (Adult) (Primary Dx) Discharge Disposition: Discharged to home or Selfcare 07/15/2025 Travel 07/13/2025 Refill [facility] [address] [place] [address] Anali Wells APRN, METAL BUILDINGS ASSEMBLER Medication Refill 07/01/2025 Refill [facility] [address] [place] [address] Anali Wells APRN, METAL BUILDINGS ASSEMBLER Medication Refill 06/29/2025 Telephone [facility] [address] [place] [address] Anali Wells APRN, METAL BUILDINGS ASSEMBLER from Last 3 Months Immunizations Immunization Administration Dates Next Due Covid-19, Mrna, Lnp-s, PF, 1 00 mcg/0.5 mL Dose (Moderna) 01/16/2021,12/19/2020 Influenza Vaccine, Quadrivalent, PF 06/05/2022 Influenza, High-dose, Quadrivalent 07/16/2021 Influenza, Quadrivalent, Adjuvanted 09/19/2023,1 Influenza, high-dose, trivalent, PF 05/05/2025,1 10/03/2023,07/16/2021 Pneumococcal Vaccine - 13 Valent 06/25/2016 Pneumococcal Vaccine Adult - 23 Valent 8 RSV, Recombinant, Protein Pineda bunit Rsvpref, Adjuvant Recon (Arexvy) 09/19/2023 TDAP Vaccine 07/15/2025 Zoster Vaccine Recombinant 06/19/2022,03/30/2022 Family History Medical History Relation Name Comments Diabetes Daughter Cancer Father colon Diabetes Maternal Aunt Cancer Maternal Cousin breast Diabetes Maternal Grandmother Diabetes Maternal Uncle Diabetes Mother Osteoarthritis Mother Cancer Paternal Aunt liver Cancer Paternal Grandmother stomach Relation Name Status Comments Daughter Alive Father Maternal Aunt Maternal Cousin Maternal Grandmother Maternal Uncle Mother Paternal Aunt Paternal Grandmother Social History Tobacco Use Types Packs/Day Years Used Date Smoking Tobacco: Never Smokeless Tobacco: Never Tobacco Cessation:Counseling Given: No Alcohol Use Standard Drinks/Week Comments Yes 0 (1 standard drink = 0.6 oz pur e alcohol) occasionally holidays [employer] Answer Date Recorded In the past 12 months has [employer], gas, oil, or water [employer] threatened to shut off services in your home? Patient declined 04/07/2024 Social Connection and Isolation Panel Answer Date Recorded In a typical week, how many times do you talk on the phone with family, friends, or neighbors? Patient declined 04/07/2024 How often do you get togethe r with friends or relatives? Patient declined 04/07/2024 How often do you attend christian or confucianism serv ices? Patient declined 04/07/2024 Do you belong to any clubs o r organizations such as christian groups, unions, fraternal or athletic groups, or [...] Total Score - Questions 1-9 0 09/23 [facility] - Occupational [...] any time in the past 12 m [facility], were you homeless or living in a halfway (including now)? 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 Not on file Not on file Not on file Last Filed Vital Signs Vital Sign Reading Time Taken Comments Blood Pressure 122/72 08/24/2025 2:17 PM DRY CAN TENDER Pulse 71 08/24/2025 2:17 PM DRY CAN TENDER Temperature 36.5 C (97.7 F) 08/24/2025 2:17 PM DRY CAN TENDER Respiratory Rate 16 08/24/2025 2:17 PM DRY CAN TENDER Oxygen Saturation 96% 08/24/2025 2:17 PM DRY CAN TENDER Inhaled Oxygen Concentration - - Weight 89.4 kg (197 lb) 08/24/2025 2:17 PM DRY CAN TENDER Height 157.5 cm (5' 2) 08/24/2025 2:17 PM DRY CAN TENDER Body Mass Index 36.03 08/24/2025 2:17 PM DRY CAN TENDER Plan of Treatment Upcoming Encounters Date Type Department Care Team (Late st Contact Info) Description 10/25/2025 9:45 AM DRY CAN TENDER Office Visit [facility] [place] [address] [place] [address] Anali Wells, BODY MAKER, METAL BUILDINGS ASSEMBLER [address] [phone] Health Maintenance Due Date Last Done Comments Hepatitis C Virus (HCV) Screening 1950 Medicare Initial AWV [id number] 02/12/2017 Diabetes: Eye Exam 10/13/2025 10/13/2024 Diabetes: Hemoglobin A1c 01/13/2026 025, 2025, 01/14/2025, Additional history exists SARS-COV-2 Immunization ( season) 2026 07/15/2025, 08/03/2024, 09/11/2021, Additional history exists Diabetes: Foot Exam 2026 2025, 2025, 2025 Diabetes: Nephropathy Screening 08/23/2026 08/23/2025, 07/15/2025, 07/15/2025, Additional history exists DEXA Bone Density 05/04/2027 05/04/2025, , 03/15/2018, Additional history exists Td Immunization Every 10 Years (Adults With 1 Tdap) 07/15/2035 07/15/2025 Pneumococcal Immunization (50+ years) Completed 08/08/2018, 06/25/2016 Pneumococcal Immunization Combined Discontinued 08/08/2018, 06/25/2016 Immunochemical Fecal Occult Blood Discontinued 01/03/2021 Zoster Immunization Completed 06/19/2022, Respiratory Syncytial Virus (RSV) Immunization (Adult) Completed 09/19/2023 Colonoscopy Discontinued 06/02/2024, 05/24, 08/05/2019 Colorectal Cancer Screening Discontinued Mammogram Discontinued 12/16/2024, 01/21, 11/30/2021, Additional history exists Influenza Immunization Completed , 08/03/2024, 09/19/2023, Additional history exists DTaP/Tdap/Td Immunization Discontinued 07/15/2025 TdaP Immunization Discontinued 07/15/2025 Cologuard Discontinued Hepatitis B Immunization Aged Out No longer eligible based on patient's age to complete this topic Human Papillomavirus (HPV) Immunization (No Doses Required) Completed Meningococcal Immunization (ACWY) Aged Out No longer eligible based on patient's age to complete this topic Rotavirus Immunization Aged Out No lo nger eligible based on patient's age to complete this topic Medical Devices Implanted Type Area Continuity Reader Device Identifier Shelf Expiration Date Model / Serial / Lot Clip 360 Resolution 235cm - [id number] Implanted:Qty: 3 on 08/05/2019 by Alli Aguilar DO at [facility] IMPLANT N/A: Colon [employer] 09/23/2019 [id number] / UNK / UNK Description:Not able to michael ge under supplied for patient. No longer have packaging with serial/lot numbers or expiration dates. Cement Bone Orthoset 1 40gm - [id number] Implanted:Qty: 1 on 11/11/2019 by Rudi Marshall MD at [facility] IMPLANT Left: Knee [employer] 12/21/2021 [id number] / [id number] / [id number] Cement Bone Orthoset 1 40gm - [id number] Implanted:Qty: 1 on 11/11/2019 by Rudi Marshall MD at [facility] IMPLANT Left: Knee [employer] 12/21/2021 [id number] / [id number] / [id number] Insert Evolution Mp Tib Keeled Nonpor Size 4 Standard Left - [id number] Implanted:Qty: 1 on 11/11/2019 by Rudi Marshall MD at [facility] IMPLANT Left: Knee [employer] 08/12/2027 [id number] / [id number] / [id number] Insert Evolution Mp Fem Cs/Cr Porous - [id number] Implanted:Qty: 1 on 11/11/2019 by Rudi Marshall MD at [facility] IMPLANT Left: Knee [employer] 08/25/2027 [id number] / [id number] / [id number] Component Patellar Low Dome 7mm 25mm Recessed Advance All Poly - [id number] Implanted:Qty: 1 on 11/11/2019 by Rudi Marshall MD at [facility] IMPLANT Left: Knee [employer] 07/02/2027 [id number] / [id number] / [id number] Insert Evolution Mp Cs Size 4 Standard 10mm Left - [id number] Implanted:Qty: 1 on 11/11/2019 by Rudi Marshall MD at [facility] IMPLANT Left: Knee [employer] 03/16/2027 [id number] / [id number] / [id number] Procedures Procedure Name Priority Date/Time Associated Diagnosis Comments URINALYSIS REFLEX IF INDICATED BY ABNORMAL RESULTS STAT 08/23/2025 10:18 PM DRY CAN TENDER BLUE TOP TUBE STAT 08/23/2025 9:31 PM DRY CAN TENDER CBC WITH AUTO DIFFERENTIAL STAT 08/23/2025 9:31 PM DRY CAN TENDER EXTRA TUBES STAT 08/23/2025 9:31 PM DRY CAN TENDER COMPLETE BLOOD COUNT (CBC) WITH DIFF STAT 08/23/2025 9:31 PM DRY CAN TENDER CMP (COMPREHENSIVE METABOLIC PANEL) STAT 08/23/2025 9:31 PM DRY CAN TENDER BLOOD GASES, VENOUS W/ O2 SATURATION STAT 08/23/2025 9:31 PM DRY CAN TENDER TEST FOR ACETONE/KETONES STAT 08/23/2025 9:31 PM DRY CAN TENDER POCT GLUCOSE STAT 08/23/2025 9:13 PM DRY CAN TENDER CBC WITH AUTO DIFFERENTIAL Routine 07/15/2025 10:11 AM CDT Primary hypertension THYROID STIMULATING HORMONE (TSH) Routine 07/15/2025 10:11 AM CDT Primary hypertension COMPLETE BLOOD COUNT (CBC) WITH DIFF Routine 07/15/2025 10:11 AM CDT Primary hypertension HEMOGLOBIN A1C W/ ESTIMATED GLUCOSE Routine 07/15/2025 10:11 AM CDT Diet-controlled diabetes mellitus UR MICROALBUMIN/CREATINI NE RATIO RANDOM Routine 07/15/2025 10:11 AM CDT Diet-controlled diabetes mellitus LIPID PANEL Routine 07/15/2025 10:11 AM CDT Primary hypertension Diet-controlled diabetes mellitus CMP (COMPREHENSIVE METABOLIC PANEL) Routine 07/15/2025 10:11 AM CDT Chronic renal insufficiency, stage 3 (moderate) Primary hypertension Diet-controlled diabetes mellitus LINH BONE DENSITOMETRY AXIAL SKELETON Routine 05/04/2025 10:05 AM CDT Screening for osteoporosis Asymptomatic menopausal state LINH SCREENING BILATERAL DIGITAL W CAD W JASON Routine 12/16/2024 3:50 PM CDT Visit for screening mammogram GI IMAGING - COLONOSCOPY Routine 06/02/2024 7:45 AM CDT from Last 3 Months or Most Recently Relevant to Health Maintenance Results * (ABNORMAL) URINALYSIS REFLEX IF INDICATED BY ABNORMAL RESULTS (08/23/2025 10:18 PM DRY CAN TENDER) SPECIFIC GRAVITY 1.025 1.003 - 1.030 08/23/2025 10:28 PM DRY CAN TENDER [facility] URINE PH 5.0 5.0 - 9.0 08/23/2025 10:28 PM DRY CAN TENDER [facility] WBC ESTERASE Negative Negative 08/23/2025 10:28 PM DRY CAN TENDER [facility] NITRITE Negative Negative 08/23/2025 10:28 PM DRY CAN TENDER [facility] PROTEIN, RANDOM URINE 15 mg/dL(A) Negative 08/23/2025 10:28 PM DRY CAN TENDER [facility] URINE GLUCOSE, QUAL Negative Negative 08/23/2025 10:28 PM DRY CAN TENDER [facility] URINE KETONES Negative Negative 08/23/2025 10:28 PM DRY CAN TENDER [facility] UROBILINOGEN Normal Normal mg/dL 08/23/2025 10:28 PM [facility] URINE BLOOD Negative Negative eriberto/ul 08/23/2025 10:28 PM DRY CAN TENDER [facility] URINALYSIS COLOR Yellow 08/23/20 10:28 PM [facility] URINALYSIS CLARITY Slightly Cloudy 08/23/2025 10:28 PM [facility] Urine URINE SPECIMEN / Unknown Non-Phlebotomy Collection / Unknown 08/23/2025 10:18 PM DRY CAN TENDER 08/23/2025 10:22 PM DRY CAN TENDER Andrea Loya DO URINE ORDERABLES Final Result [facility] [address] [place] [address] * Blue Top Tube (08/23/2025 9:31 PM DRY CAN TENDER) Blood No Phlebotomy Charged / Unknown 08/23/2025 9:31 PM DRY CAN TENDER 08/23/2025 9:38 PM DRY CAN TENDER us Andrea Loya DO HEMATOLOGY ORDERABLES F inal Result [facility] [address] [place] [address] * (ABNORMAL) CBC with Auto Differential (08/23/2025 9:31 PM DRY CAN TENDER) Only the most recent of2 resultswithin the time period is included. WBC 10.96 4.00 - 12.00 10(3)/mcL 08/23/2025 9:36 PM DRY CAN TENDER [facility] RBC 4.45 3.80 - 5.30 10(6)/mcL 08/23/2025 9:36 PM DRY CAN TENDER [facility] HEMOGLOBIN (HGB) 12.8 12.0 - 15.8 g/dL 08/23/2025 9:36 PM DRY CAN TENDER [facility] HEMATOCRIT (HCT) 39.5 36.0 - 47.0 % 08/23/2025 9:36 PM DRY CAN TENDER [facility] MCV 88.8 82.0 - 96.0 fL 08/23/2025 9:36 PM DRY CAN TENDER [facility] MCH 28.8 26.0 - 34.0 pg 08/23/2025 9:36 PM DRY CAN TENDER [facility] MCHC 32.4 31.0 - 36.0 g/dL 08/23/2025 9:36 PM DRY CAN TENDER [facility] PLATELET COUNT 259 140 - 440 10(3)/mcL 08/23/2025 9:36 PM DRY CAN TENDER [facility] RDW 13.3 11.8 - 15.5 % 08/23/2025 9:36 PM [facility] MPV 9.6(L) 9.7 - 12.4 fL 08/23/2025 9:36 PM [facility] NEUTROPHILS 64.6 47.0 - 73.0 % 08/23/2025 9:36 PM [facility] LYMPHOCYTES 24.5 18.0 - 42.0 % 08/23/2025 9:36 PM [facility] MONOCYTES 7.1 4.0 - 12.0 % 08/23/2025 9:36 PM [facility] EOSINOPHILS 2.9 0.0 - 5.0 % 08/23/2025 9:36 PM [facility] BASOPHILS 0.5 0.0 - 1.0 % 08/23/2025 9:36 PM [facility] IMMATURE GRANULOCYTE 0.4 0.0 - 0.4 % 08/23/2025 9:36 PM [facility] ABSOLUTE NEUTROPHILS 7.09 1.60 - 7.70 10(3)/[facility] 08/23/2025 9:36 PM [facility] ABSOLUTE LYMPHOCYTES 2.68 1.30 - 3.20 10(3)/[facility] 08/23/2025 9:36 PM [facility] ABSOLUTE MONOCYTES 0.78 0.20 - 1.00 10(3)/[facility] 08/23/2025 9:36 PM [facility] ABSOLUTE EOSINOPHIL 0.32 0.00 - 0.40 10(3)/[facility] 08/23/2025 9:36 PM [facility] ABSOLUTE BASOPHILS 0.05 0.00 - 0.10 10(3)/[facility] 08/23/2025 9:36 PM [facility] ABSOLUTE IMMATURE GRANULOCYTE 0.04(H) 0.00 - 0.03 10 (3) [facility]. 08/23/2025 9:36 PM [facility] NRBC PER 100 WBC 0 08/23/20 9:36 PM [facility] Blood Venipuncture / Unknown 08/23/2025 9:31 PM DRY CAN TENDER 08/23/2025 9:34 PM DRY CAN TENDER us Andrea Orellana Shalini DO HEMATOLOGY ORDERABLES F inal Result [facility] [address] [place] [address] * (ABNORMAL) Blood Gases, Venous w/ O2 Saturation (08/23/2025 9:31 PM DRY CAN TENDER) O2 STATUS na 08/23/2025 9:41 PM DRY CAN TENDER [facility] PH VENOUS 7.41 7.34 - 7.43 08/23/2025 9:41 PM DRY CAN TENDER [facility] PCO2 (VENOUS) 41 41 - 51 mmHg 08/23/2025 9:41 PM DRY CAN TENDER [facility] PO2 VENOUS 62(H) 30 - 50 mmHg 08/23/2025 9:41 PM DRY CAN TENDER [facility] O2 SAT KI, MEASURED 87(H) 60 - 85 % 09/2024 9:41 PM DRY CAN TENDER [facility] BICARBONATE 25.7 22.0 - 26.0 mmol/L 08/23/2025 9:41 PM DRY CAN TENDER [facility] BASE VENOUS 1.5 -2.0 - 3.0 mmol/L 08/23/2025 9:41 PM DRY CAN TENDER [facility] CARBOXYHEMOGLOBIN 0.9 0.0 - 5.0 % 08/23/2025 9:41 PM DRY CAN TENDER [facility] METHEMOGLOBIN 0.3 0.0 - 1.5 % 08/23/2025 9:41 PM DRY CAN TENDER [facility] KI Blood Gas Venipuncture / Unknown 08/23/2025 9:31 PM DRY CAN TENDER 08/23/2025 9:37 PM DRY CAN TENDER Narrative [facility] - 08/23/2025 9:41 PM DRY CAN TENDER Interpretation - The usual approach to interpreting a VBG consists of using the venous measurements to estimate the corresponding arterial values, then using these estimated values for clinical decision-making exactly as if an ABG had been performed. The difference between the venous measurements and the arterial measurements depends upon the site of venous sampling and varies among laboratories. Correlation with arterial blood gases - Although arterial blood gas analysis is more accurate than venous analysis for the assessment of oxygenation, measurement of PCO2, pH, and HCO3 are similar with some minor adjustments: The central venous pH is usually 0.03 to 0.05 pH units lower than the arterial pH and the PCO2 is usually 4 to 5 mmHg higher, with little or no increase in HCO3. Mixed venous blood (ie, SvO2 drawn from a pulmonary artery catheter) gives results similar to central venous blood (ie, ScvO2 drawn from a central venous catheter). The peripheral venous pH is approximately 0.02 to 0.04 pH units lower than the arterial pH, the venous serum HCO3 concentration is approximately 1 to 2 meq/L higher, and the venous PCO2 is approximately 3 to 8 mmHg higher. There are no venous to arterial conversions for ScvO2, SvO2, or peripheral venous oxyhemoglobin saturation (PvO2). Importantly, sufficient variability between arterial and venous blood gas values may exist such that periodic correlation between arterial and venous blood gas values is always prudent. us Andrea Loya DO CHEMISTRY ORDERABLES Fi nal Result [facility] [address] [place] [address] * (ABNORMAL) CMP (Comprehensive Metabolic Panel) (08/23/2025 9:31 PM DRY CAN TENDER) Only the most recent of2 resultswithin the time period is included. SODIUM 139 136 - 145 mmol/L 08/23/2025 9:55 PM DRY CAN TENDER [facility] POTASSIUM 4.0 3.5 - 5.1 mmol/L 08/23/2025 9:55 PM DRY CAN TENDER [facility] CHLORIDE 105 98 - 107 mmol/L 08/23/2025 9:55 PM DRY CAN TENDER [facility] CO2, VENOUS 24 22 - 30 mmol/L 08/23/2025 9:55 PM DRY CAN TENDER [facility] ANION GAP 14.0 <18.0 mmol/L 08/23/2025 9:55 PM [facility] GLUCOSE 142(H) 70 - 99 mg/dL 08/23/2025 9:55 PM [facility] BUN 26(H) 10 - 20 mg/dL 08/23/2025 9:55 PM [facility] CREATININE, BLOOD 1.24(H) 0.60 - 1.00 mg/dL 08/23/2025 9:55 PM [facility] BUN/CREATININE RATIO 21(H) 12 - 20 ratio 08/23/2025 9:55 PM [facility] TOTAL PROTEIN 7.4 6.0 - 8.0 g/dL 08/23/2025 9:55 PM [facility] ALBUMIN 4.1 3.5 - 5.0 g/dL 08/23/2025 9:55 PM [facility] A/G RATIO 1.2 1.0 - 2.2 08/23/2025 9:55 PM [facility] CALCIUM 9.8 8.7 - 10.5 mg/dL 08/23/2025 9:55 PM [facility] T BILI 0.2 0.2 - 1.2 mg/dL 08/23/2025 9:55 PM [facility] SGOT (AST) 15 <43 U/L 08/23/2025 9:55 PM [facility] SGPT (ALT) 18 <56 U/L 08/23/2025 9:55 PM [facility] ALKALINE PHOSPHATASE 97 40 - 150 U/L 08/23/2025 9:55 PM [facility] GFR, ESTIMATED 45(L) >=60 08/23/2025 9:55 PM [facility] Comment: Creatinine Clearance is the preferred criteria for selecting drug dose adjustments in renally impaired patients. The GFR is provided as additional pertinent clinical information. GFR is reported in mL/min/1.73 sq m. Calculation based on the 2020 Chronic Kidney Disease Epidemiology Collaboration (CKD-EPI) equation refit without adjustment for race. GFR, EST. 51(L) >=60 025 9:55 PM DRY CAN TENDER [facility] Comment: Creatinine Clearance is the preferred criteria for selecting drug dose adjustments in renally impaired patients. The GFR is provided as additional pertinent clinical information. GFR is reported in mL/min/1.73 sq m. Calculation based on the 2009 Chronic Kidney Disease Epidemiology Collaboration (CKD-EPI). GFR, EST. NONAFRICAN 42(L) >=60 08/23/2025 9:55 PM DRY CAN TENDER [facility] Comment: Creatinine Clearance is the preferred criteria for selecting drug dose adjustments in renally impaired patients. The GFR is provided as additional pertinent clinical information. GFR is reported in mL/min/1.73 sq m. Calculation based on the 2009 Chronic Kidney Disease Epidemiology Collaboration (CKD-EPI). Blood Venipuncture / Unknown 08/23/2025 9:31 PM DRY CAN TENDER 08/23/2025 9:34 PM DRY CAN TENDER us Andrea Loya DO CHEMISTRY ORDERABLES Fi nal Result Performing Organization Address City/[facility]/ZIP Co de Phone Number [facility] [address] [place] [address] * ACETONE QUAL (08/23/2025 9:31 PM DRY CAN TENDER) ACETONE Negative Negative 08/23/2025 9:50 PM DRY CAN TENDER [facility] Blood Venipuncture / Unknown 08/23/2025 9:31 PM DRY CAN TENDER 08/23/2025 9:34 PM DRY CAN TENDER Andreamichael Loya DO CHEMISTRY ORDERABLES Fi nal Result Performing Organization Address City/[facility]/ZIP Co de Phone Number [facility] [address] [place] [address] * (ABNORMAL) POCT Glucose (08/23/2025 9:13 PM DRY CAN TENDER) GLUCOSE,BEDSID E POCT 159(H) 70 - 99 mg/dL 08/23/2025 9:14 PM DRY CAN TENDER [facility] Comment:Patient RN Performed Blood 08/23/2025 9:13 PM DRY CAN TENDER 08/23/2025 9:14 PM DRY CAN TENDER us None Provider POINT OF CARE TESTING Final Resu lt Performing Organization Address City/[facility]/ZIP Co de Phone Number [facility] [address] [place] [address] * (ABNORMAL) HEMOGLOBIN A1C W/ ESTIMATED GLUCOSE (07/15/2025 10:11 AM CDT) Pathologist [facility] HGB-A1C 6.9(H) 4.0 - 6.0 % 07/15/2025 11:16 AM CDT [facility] Est Average Glucose 151.3 mg/dL 07/15/2025 11:16 AM CDT [facility] Blood Venipuncture / Unknown 07/15/2025 10:11 AM CDT 07/15/2025 10:57 AM CDT Narrative [facility] - 07/15/2025 11:16 AM CDT HEMOGLOBIN A1C: DIABETIC PATIENTS: WELL-CONTROLLED: 6.2 - 7.0 INTERMEDIATE WELL-CONTROLLED: 7.0 - 9.0 POORLY-CONTROLLED: >9.0 Specimens containing greater than 5% of Hemoglobin F may result in lower than expected % HbA1C results. us Anali Wells BODY MAKER, METAL BUILDINGS ASSEMBLER CHEMISTRY ORDERABL ES Final Result Performing Organization Address City/[facility]/ZIP Co de Phone Number [facility] [address] [place] [address] * UR MICROALBUMIN/CREATININE RATIO RANDOM (07/15/2025 10:11 AM CDT) RAN UR MICROALBUMIN 0.57 mg/dL 07/15/2025 12:26 PM CDT [facility] Comment:No reference range h as been established. Consider Clinical Correlation. CREATININE URINE 103.0 mg/dL 07/15/20 12:26 PM CDT [facility] Comment:No reference range h as been established. Consider Clinical Correlation. ALB/CREAT RATIO 6 0 - 30 mg/g CRE 07/15/2025 12:26 PM CDT [facility] Urine Non-Phlebotomy Collection / Unknown 07/15/2025 10:11 AM CDT 07/15/2025 10:57 AM CDT Anali Wells APRN, METAL BUILDINGS ASSEMBLER URINE ORDERABLES F inal Result [facility] [address] [place] [address] * THYROID STIMULATING HORMONE (TSH) (07/15/2025 10:11 AM CDT) TSH 2.550 0.300 - 5.000 mIU/L 07/15/2025 12:16 PM CDT [facility] Blood Venipuncture / Unknown 07/15/2025 10:11 AM CDT 07/15/2025 10:55 AM CDT Anali Wells APRN, METAL BUILDINGS ASSEMBLER CHEMISTRY ORDERABL ES Final Result Performing Organization Address City/[facility]/ZIP Co de Phone Number [facility] [address] [place] [address] * (ABNORMAL) LIPID PANEL (07/15/2025 10:11 AM CDT) CHOLESTEROL 165 <200 mg/dL 07/15/2025 11:50 AM CDT [facility] TRIGLYCERIDES 136 <150 mg/dL 07/15/2025 11:50 AM CDT [facility] HDL CHOLESTEROL 37(L) >40 mg/dL 11:50 AM CDT [facility] LDL 101 <130 mg/dL 07/15/2025 11:50 AM CDT [facility] VLDL 27 10 - 50 mg/dL 07/15/2025 11:50 AM CDT [facility] CHOL/HDL RATIO 4.5(H) 0.0 - 4.4 07/15/2025 11:50 AM CDT [facility] NON-HDL CHOLESTEROL 128 <130 mg/dL 07/15/2025 11:50 AM CDT [facility] IS THE PATIENT REQUIRED TO BE FASTING? Yes 07/15/2025 11:50 AM CDT [facility] HAS THE PATIENT BEEN FASTING? Yes 07/15/2025 11:50 AM CDT [facility] Blood Venipuncture / Unknown 07/15/2025 10:11 AM CDT 07/15/2025 10:55 AM CDT Narrative [facility] - 07/15/2025 11:50 AM CDT NCEP GUIDELINES FOR LIPID INTERPRETATION TOTAL CHOLESTEROL DESIRABLE <200 BORDERLINE 200-239 HIGH >=240 LDL CHOLESTEROL OPTIMAL <100 NEAR OPTIMAL 100-129 BORDERLINE 130-159 HIGH 160-189 VERY HIGH >=190 Calculated using the Friedewald equation. HDL CHOLESTEROL LOW <40 *HIGH >=60 TRIGLYCERIDES NORMAL <150 BORDERLINE 150-199 HIGH 200-499 VERY HIGH >=500 VLDL calculated using Triglycerides/5. *HDL CHOLESTEROL >=60 mg/dL counts as a negative risk factor; its presence removes one risk factor from the total. Based on guidelines from the National Cholesterol Education Program, desirable levels for non HDL cholesterol are 30 mg/dL above target levels for LDL cholesterol. us Anali Wells BODY MAKER, METAL BUILDINGS ASSEMBLER CHEMISTRY ORDERABL ES Final Result [facility] [address] [place] [address] * LINH BONE DENSITOMETRY AXIAL SKELETON (05/04/2025 10:05 AM CDT) Anatomical Region Laterality Modality BODY N/A Computed Radiogr aphy 05/04/2025 10:3 1 AM CDT Impressions 05/04/2025 10:33 AM CDT IMPRESSION: 1. Normal bone mass. REFERENCE: Bone mineral density: T-Score: Normal (T-score above or = -1.0) Low bone mass (T-score between -1.0 and -2.5) replaces the previously used term osteopenia Osteoporosis (T-score = or below -2.5) Z-Score: Within the expected range for age (Z-score above -2.0) Below the expected range for age (Z-score is -2.0 or below) Please see below follow up recommendations. Medical evaluation for secondary causes of low bone mineral density may be appropriate. FRAX is a World Health Organization validated fracture risk assessment tool that calculates a person's 10 year probability of a major osteoporosis related fracture and hip fracture. According to the National Osteoporosis Foundation guidelines, postmenopausal women and men age 50 or older with low bone mass and a 10 year probability of a major osteoporosis related fracture = or greater than 20% or a 10 year probability of a hip fracture = or greater than 3% should be considered for pharmacological treatment for the prevention of osteoporosis. For further information, including treatment recommendations, please refer to the 2019 ISCD Official Positions (http://www.iscd.org) and the NOF's Clinician's Guide to Prevention and Treatment of Osteoporosis (http://www.nof.org/professionals/clinical-guidelines) Narrative 05/04/2025 10:33 AM CDT EXAM DESCRIPTION: LINH BONE DENSITOMETRY AXIAL SKELETON REASON FOR STUDY: 75 y/o year old F with given history of: Post menopausal status. History of taking multivitamin and calcium. Continuity Reader/Model: WHMSOFT (S/N [id number]) Facility LSC value of 0.028 for the AP spine and 0.033 for the femur. CLINICAL INFORMATION: Current height: 62 inches Maximum height: 63 inches Weight: 196 pounds Risk factors: None COMPARISON: 01/10/2021 FINDINGS: AP LUMBAR SPINE L1-L4: Total BMD is 1.287 g/cm2 T-score is 0.8 This is a 3.2% increase in comparison to prior exam which is statistically significant. LEFT HIP: Total BMD is 1.058 g/cm2 T-score is 0.4 This is a 1.1% increase in comparison to prior exam which is not statistically significant. Femoral neck BMD is 0.995 g/cm2 T-score is -0.3 FRAX: FRAX not reported due to T-scores of hip, femoral neck and/or spine being at or above -1.0 (Normal). THIS IS AN ELECTRONICALLY VERIFIED FINAL REPORT 05/04/2025 10:31 AM - Electronically signed by Merary Ferrell M.D. TW: Report ID: [id number] Reading Location: [place] [address] Procedure Note Merary Ferrell MD - 05/04/2025 EXAM DESCRIPTION: [facility] BONE DENSITOMETRY AXIAL SKELETON REASON FOR STUDY: 75 y/o year old F with given history of: Post menopausal status. History of taking multivitamin and calcium. Continuity Reader/Model: WHMSOFT (S/N [id number]) Facility LSC value of 0.028 for the AP spine and 0.033 for the femur. CLINICAL INFORMATION: Current height: 62 inches Maximum height: 63 inches Weight: 196 pounds Risk factors: None COMPARISON: 01/10/2021 FINDINGS: AP LUMBAR SPINE L1-L4: Total BMD is 1.287 g/cm2 T-score is 0.8 This is a 3.2% increase in comparison to prior exam which is statistically significant. LEFT HIP: Total BMD is 1.058 g/cm2 T-score is 0.4 This is a 1.1% increase in comparison to prior exam which is not statistically significant. Femoral neck BMD is 0.995 g/cm2 T-score is -0.3 FRAX: FRAX not reported due to T-scores of hip, femoral neck and/or spine being at or above -1.0 (Normal). THIS IS AN ELECTRONICALLY VERIFIED FINAL REPORT 05/04/2025 10:31 AM - Electronically signed by Merary Ferrell M.D. TW: Report ID: [id number] Reading Location: [place] [address] IMPRESSION: 1. Normal bone mass. REFERENCE: Bone mineral density: T-Score: Normal (T-score above or = -1.0) Low bone mass (T-score between -1.0 and -2.5) replaces the previously used term osteopenia Osteoporosis (T-score = or below -2.5) Z-Score: Within the expected range for age (Z-score above -2.0) Below the expected range for age (Z-score is -2.0 or below) Please see below follow up recommendations. Medical evaluation for secondary causes of low bone mineral density may be appropriate. FRAX is a World Health Organization validated fracture risk assessment tool that calculates a person's 10 year probability of a major osteoporosis related fracture and hip fracture. According to the National Osteoporosis Foundation guidelines, postmenopausal women and men age 50 or older with low bone mass and a 10 year probability of a major osteoporosis related fracture = or greater than 20% or a 10 year probability of a hip fracture = or greater than 3% should be considered for pharmacological treatment for the prevention of osteoporosis. For further information, including treatment recommendations, please refer to the 2019 ISCD Official Positions (http://www.iscd.org) and the NOF's Clinician's Guide to Prevention and Treatment of Osteoporosis (http://www.nof.org/professionals/clinical-guidelines) Anali Wells APRN, [facility] IMG DEXA ORDERABLE S Final Result * [facility] SCREENING BILATERAL DIGITAL W CAD W JASON (12/16/2024 3:50 PM CDT) Anatomical Region Laterality Modality breast Bilateral Mammography 12/16/2024 3:50 PM CDT Narrative 12/17/2024 10:03 AM CDT - [facility] SCREENING BILATERAL DIGITAL W CAD W JASON BILATERAL DIGITAL SCREENING MAMMOGRAM 3D/2D WITH CAD WITH MEDIOLATERAL OBLIQUE CRANIOCAUDAL: 12/16/2024 The study was acquired using digital technology and interpreted from soft copy. Current study was also evaluated with ICAD version 7.2. 2D digital mammographic views, as well as 3D digital tomosynthesis were performed in the CC and MLO projections. CLINICAL: Routine screening. Patient has no complaints. No personal history of cancer. Two maternal cousins had breast cancer. COMPARISONS: Comparison is made to exams dated: 11/25/2020, 11/30/2021, and 02/04/2023 [facility]. BREAST TISSUE:There are scattered areas of fibroglandular density. FINDINGS: There are biopsy clips in the left breast. No significant masses, calcifications, or other findings are seen in either breast. There has been no significant interval change. IMPRESSION: NEGATIVE There is no mammographic evidence of malignancy. A 1 year screening mammogram is recommended. A letter will be sent to the patient with these results. The patient will be entered into a reminder system with a target due date of 1 year for her next screening exam. Electronically signed by: Marium knox/penmadelin:12/16/2024 19:53:48 Member Service Representative(s): RT Pablito(R)(M), [facility] letter sent: Normal Exam Reading location: [facility] Mammogram BI-RADS: Category 1: Negative Procedure Note Marium Garcia MD - 12/17/2024 - [facility] SCREENING BILATERAL DIGITAL W CAD W JASON BILATERAL DIGITAL SCREENING MAMMOGRAM 3D/2D WITH CAD WITH MEDIOLATERAL OBLIQUE CRANIOCAUDAL: 12/16/2024 The study was acquired using digital technology and interpreted from soft copy. Current study was also evaluated with ICAD version 7.2. 2D digital mammographic views, as well as 3D digital tomosynthesis were performed in the CC and MLO projections. CLINICAL: Routine screening. Patient has no complaints. No personal history of cancer. Two maternal cousins had breast cancer. COMPARISONS: Comparison is made to exams dated: 11/25/2020, 11/30/2021, and 02/04/2023 [facility]. BREAST TISSUE:There are scattered areas of fibroglandular density. FINDINGS: There are biopsy clips in the left breast. No significant masses, calcifications, or other findings are seen in either breast. There has been no significant interval change. IMPRESSION: NEGATIVE There is no mammographic evidence of malignancy. A 1 year screening mammogram is recommended. A letter will be sent to the patient with these results. The patient will be entered into a reminder system with a target due date of 1 year for her next screening exam. Electronically signed by: Marium knox/penmadelin:12/16/2024 19:53:48 Member Service Representative(s): Génesis Akins RT(R)(M), [facility] letter sent: Normal Exam Reading location: [facility] Mammogram BI-RADS: Category 1: Negative Anali Wells BODY MAKER, METAL BUILDINGS ASSEMBLER IMG MAMMO ORDERABL ES Final Result * GI IMAGING - COLONOSCOPY (06/02/2024 7:45 AM CDT) us Jun Prado MD IMG DIAGNOSTIC ORDERABLES Final Result from Last 3 Months or Most Recently Relevant to Health Maintenance Insurance MEDICARE C [employer] Advance Directives * Full Code (Latest Code Status on File) Date Activated Date Inactivated Comments 11/18/2019 1:24 PM 04/26/2022 12:52 PM * Full Code Date Activated Date Inactivated Comments 11/11/2019 3:20 PM 11/13/2019 6:34 PM CPR-Full Ricky atment: FULL ARREST: Attempt Resuscitation/CPR wit intubation and mechanical ventilation. PRE-ARREST: Use entire range of life support measures to stabilize the patient. * Full Code Date Activated Date Inactivated Comments 04/18/2017 11:59 AM 04/19/2017 4:14 PM CPR-Full Tr eatment: FULL ARREST: Attempt Resuscitation/CPR wit intubation and mechanical ventilation. PRE-ARREST: Use entire range of life support measures to stabilize the patient. Care Teams Delivery Truck Driver Heavy Relationship Specialty Start Date End Date Anali Wells, FIFI, METAL BUILDINGS ASSEMBLER [address] [address] PCP - General Advanced Practice Nurse 11/26/23
--- OUTSIDE RECORDS SUMMARY | 2025-09-20 12:21 | XMS_ITS | Encounter Summary ---
Author Organization [facility] Address [address] [place] [id number] Phone Care Team Providers Care Inhalation Therapy Teacher Name Role Phone Laura Aly MD Primary Care Provider Vern Galvez MD Unavailable Melissa Dominguez RN Unavailable UnavailAnali Davis APRN, GENERAL FARMWORKER Primary Care Prov ider Reason for Visit * Reason Comments Medication Refill Encounter Details Date Type Department Care Team (Late st Contact Info) Description 04/26/2023 Refill [facility] [address] [place] [address] [place] [id number] [place] [address] Medication Refill Social History Tobacco [...] suspected to have Coronavirus/COVID-19? No / Unsure 04/02/2023 10:55 AM CDT documented as of this encounter Miscellaneous Notes * Telephone Encounter - Julee Krishnan RN - 04/26/2023 3:07 PM CDT Medication failed the protocol, provider to review and approve the medication order if appropriate. Requested Prescriptions Pending Prescriptions Disp Refills meloxicam (MOBIC) 7.5 MG Tablet [Pharmacy Med Name: MELOXICAM 7.5 MG Tablet] 90 Tablet 0 Sig: TAKE 1 TABLET TWICE DAILY NEEDED FOR MODERATE OR MORE SEVERE PAIN NSAIDs Protocol Failed - 04/26/2023 10:34 AM Failed - Normal serum creatinine in [...] requirements Future Appointments Date Type Provider Dept 07/09/23 Appointment Laura Aly MD [facility] Showing future appointments within next 90 days and meeting all other requirements Passed - No matching NSAID med order in past 45 days No matching medication orders between 03/12/2023 3:07 PM and 04/26/2023 3:07 PM Passed - AST less than 55 [...] st Contact Info) Description 10/25/2025 9:45 AM DEBURR TECHNICIAN Office Visit [facility] [address] [place] [address] Anali Wells APRN, [facility] [address] [address] documented as of this encounter Visit Diagnoses Not on filedocumented in this encounter Additional Health Concerns Infection Onset Date Last Indicated Resolved Time COVID - 19 07/25/2023 07/25/2023 08/04/2023 12:1 7 AM DEBURR TECHNICIAN COVID - 19 10/04/2023 10/04/2023 10/14/2023 12:1 6 AM DEBURR TECHNICIAN Assessment Noted Time PHQ-9 Depression Total Score: 0 11/22/19 21 2:41 PM DEBURR TECHNICIAN documented as of this encounter Care Teams Inhalation Therapy Teacher Relationship Specialty Start Date End Date Laura Aly MD PCP - General Family Medicine 07/27/20 11/25/23 Anali Wells, INSTRUCTIONAL MANAGER, GENERAL FARMWORKER [address] [address] PCP - General Advanced Practice Nurse 11/26/23 Vern Galvez MD Consulting Physician Cardiovascular Disease - Cardiology 06/01/22 09/24/24 Melissa Self RN [place] Registered Nurse Cardiology 07/09/22 09/24/24 documented as of this encounter
--- OUTSIDE RECORDS SUMMARY | 2025-09-20 12:21 | XMS_ITS | Encounter Summary ---
Author Organization [facility] Address [address] [place] [address] Phone Care Team Providers Care Recruitment Specialist Name Role Phone Anali Wells APRN, [facility] Primary Care Prov ider Reason for Visit * Reason Comments Medication Refill Encounter Details Date Type Department Care Team (Late st Contact Info) Description 11/25/2024 Refill [facility] - Family Medicine [facility] [address] [place] [address] Luis M Angel APRN, WIRE HANGER [address] [address] Medication Refill Social History Tobacco Use Types Packs/Day Years Used Date Smoking Tobacco: Never Smokeless Tobacco: Never Alcohol Use Standard Drinks/Week Comments Yes 0 (1 standard drink = 0.6 oz pur e alcohol) occasionally holidays [facility] Utilities Answer Date Recorded In the past 12 months has e electric, gas, oil, or water company threatened to [...] declined 04/07/2024 How often do you attend anabaptist or yazdanism serv ices? Patient declined 04/07/2024 Do you belong to any clubs o r organizations such as anabaptist groups, unions, fraternal or athletic groups, or [...] Total Score - Questions 1-9 0 09/23 [facility] - Occupational Stress Questionnaire Answer [...] any time in the past 12 m [place], were you homeless or living in a snf (including now)? Patient declined 04/07/2024 Sexually Active [...] Telephone Encounter - Julee Krishnan RN - 11/25/2024 11:47 AM CST Images from the original note were not included. Irbesartan-hydroCHLOROthiazide Dispensed Days Supply Quantity Provider Pharmacy irbesartan 300 mg-hydrochlorothiazide 12.5 mg tablet 11/24/2024 90 90 Tablet Anali Wells APRN, [facility]... IRBESARTAN-HCTZ 300-12.5 MG TB 08/28/2024 90 90 Each Luis M Angel APRN, [id number] Being filled by mail order IAL EVENT ASSISTANT documented in this encounter Plan of Treatment Upcoming Encounters Date Type Department Care Team (Late st Contact Info) Description 10/25/2025 9:45 AM SPECIAL EVENT ASSISTANT Office Visit [facility] - [facility] - [place] [address] [place] [address] Anali Wells APRN, WIRE HANGER [address] [phone] documented as of this encounter Visit Diagnoses Not on filedocumented in this encounter Additional Health Concerns Assessment Noted Time PHQ-9 Depression Total Score: 0 10/09/19 25 11:25 AM SPECIAL EVENT ASSISTANT documented as of this encounter Care Teams Recruitment Specialist Relationship Specialty Start Date End Date Anali Wells APRN, WIRE HANGER [address] [phone] PCP - General Advanced Practice Nurse 11/26/23 documented as of this encounter
--- NOTE | 2025-09-20 12:46 | ED_ITS ---
HPI - Female Genitourinary General Chief complaint: Urogenital-Female Stated complaint: Urinary Problem Time Seen by Provider: 09/20/25 12:15 Source: patient, RN notes reviewed and old records reviewed Mode of arrival: ambulatory Limitations: no limitations History of Present Illness HPI Narrative: 75 year old female with complaints of pain with urination, blood in urine noted initially but has cleared, foul odor to urine,, urgency and frequency of urination and some incontinency for 2-3 days with suprapubic pressure voiced also. [place] reports that she had UTI about one month ago and was treated with Amoxicillin and has had bactrim in the past also for UTI. Patient reports no fevers chills or sweatdenies any back pain or any nausea or vomiting. MD elicited complaint: UTI Pertinent past history: other (past UTI) Onset (ago): day(s) (3) Location of symptoms: suprapubic and urethra Severity scale (1-10): 7 Quality of pain: burning and aching Vaginal discharge: none Vaginal bleeding: none Possible : postmenopausal Related Data Home Medications ?Medication ?Instructions ?Recorded ?Confirmed ?Last Taken ?Type aspirin 81 mg capsule 81 mg PO DAILY 11/02/2110/24 Unknown History estradiol 0.5 mg tablet 0.5 mg PO DAILY 11/02/2107/14 Unknown History fluticasone propionate 50 See Rx Instructions .Route . COMPLEX 11/02/21 11/02/21 Unknown History mcg/actuation nasal spray,suspension irbesartan 300 1 tablet PO DAILY 11/02/21 0 11/02/21 Unknown History mg-hydrochlorothiazide 12.5 mg tablet magnesium 200 mg tablet 200 mg PO DAILY 11/02/2107/14 Unknown History meloxicam 7.5 mg tablet 7.5 mg PO BID 11/02/2111/02 Unknown History multivitamin (Daily Multi-Vitamin 1 tablet PO DAILY 11/02/21 Unknown History tablet) omeprazole 20 mg capsule,delayed 20 mg PO DAILY 11/02/21 Unknown History release amlodipine 5 mg tablet mg 09/20/25 Unknown History Allergies Allergy/AdvReac Type Severity Reaction Status Date / Time ketorolac (From Toradol) Allergy Rash Verified 09/20/25 12:06 Review of Systems Review of Systems: CONSTITUTIONAL: Denies fever, chills, or sweats. CARDIOVASCULAR: Denies chest pain, palpitations, or edema. RESPIRATORY: Denies cough or dyspnea. GASTROINTESTINAL:suprapubic pressure ,no nausea, vomiting, or diarrhea. GENITOURINARY: Reports dysuria, frequency, urgency. Denies flank pain initially hematuria but has cleared, foul odor to urine. SKIN: Denies rash or itching. MUSCULOSKELETAL: Denies back pain or myalgia. Denies CVA tenderness NEUROLOGIC: Denies headache All systems reviewed & are unremarkable except as noted in HPI and below PMFSH Past Medical History Medical History (Updated 09/21/25 @ 16:20 by Beulah Salmeron APRN) Environmental allergies GERD (gastroesophageal reflux disease) Arthritis Urinary tract infection Hypertension Surgical History Surgical History (Updated 09/21/25 @ 16:10 by Beulah Salmeron APRN) Hx of left knee surgery H/O: hysterectomy Social History Social History (Updated 09/21/25 @ 16:11 by Beulah Salmeron APRN) Smoking status: Never smoker Alcohol intake: current Alcohol use details: rare social Substance use type: does not use Living arrangements: with family Gender identity (if verbalized by the patient): Female Comments At time of signature, agree with nursing past medical, surgical, social and family history. There is no relevant family history pertinent to the presenting complaint Exam Narrative: GENERAL: Well-appearing, well-nourished, and in no acute distress. HEAD: Normocephalic, atraumatic. NECK: Supple.no lymphadenopathy CHEST: Clear to auscultation. No respiratory distress.SAO2 95% on room air HEART: Regular rate and rhythm. No murmur heard. Normal peripheral pulses. ABDOMEN: Soft,supra pubic pressure/tender, nondistended, normal active bowel sounds. No CVA tenderness , urinary dysuria foul odor to urine, frequency urgency and some incontinency EXTREMITIES: Normal range of motion. No edema. SKIN: Warm, dry, no rash. NEURO: No focal deficits. Alert and oriented x3. Course Course Level of Care: Express Care Visit Vital Signs Vital signs: Vital Signs Temperature 36.3 C L 09/20/25 11:50 Pulse Rate 82 09/20/25 11:50 Respiratory Rate 20 09/20/25 11:50 Blood Pressure 125/71 09/20/25 11:50 Pulse Oximetry 95 09/20/25 11:50 Oxygen Delivery Room Air 09/20/25 11:50 Temperature 36.3 C L 09/20/25 11:50 Pulse Rate 82 09/20/25 11:50 Respiratory Rate 20 09/20/25 11:50 Blood Pressure 125/71 09/20/25 11:50 Pulse Oximetry 95 09/20/25 11:50 Oxygen Delivery Room Air 09/20/25 11:50 reviewed MDM [facility] Narrative Medical decision making narrative: Patient presents with positive symptoms and findings for UTI. RX Augmentin to patient's pharmacy. supportive care recommended for symptoms. Anticipatory guidance and reasons to seek cre in ED reviewed with understanding voiced Differential Diagnosis Differential Diagnosis: Differential diagnostic considerations for female urogenital? issues include urinary tract infection, bacterial vaginosis, cervicitis, ovarian cyst, vaginitis, STI exposure, ovarian torsion, ectopic , cyst of Bartholin?s gland, cystitis, dysmenorrhea.?? Lab Data [facility] Lab Attestation statement: I personally reviewed the patient's lab results. Lab results narrative: urine dip:Blood3+, Protein 2+, nitrite positive, Leukocytes 2+ Critical Care Time Critical Care Time Critical Care Time: No Discharge Plan Discharge Clinical Impression: Urinary tract infection Qualifiers: Urinary tract infection type: site unspecified Hematuria presence: with hematuria Qualified Code(s): N39.0 - Urinary tract infection, site not specified Patient Disposition: Home Condition: Stable Instructions: Antibiotic Form, Urinary Tract Infection in Women (ED) Additional Instructions: Increase fluids especially cranberry juice and water Avoid caffeine and carbonated beverages Antibiotic as directed Medicine as directed--cautioned it will cause your urine to be bright orange Tylenol/ibuprofen for pain or fever Follow-up with her primary care provider if further problems or concerns Recheck if you have fever over 101, nausea and vomiting. If your symptoms persist, change or worsen significantly before you can contact your personal physician then please, without delay, go to the emergency department for further evaluation. Follow-up with PCP in 7-10 days or sooner if needed Patient Language: Citizen Of [place] Prescriptions: New amoxicillin-pot clavulanate 875-125 mg tablet 1 tablet PO Q12H Qty: 20 0RF Rx Instructions: take with food recommend taking a probiotic or eating activia yogurt while taking this medication No Action meloxicam 7.5 mg tablet 7.5 mg PO BID irbesartan-hydrochlorothiazide 300-12.5 mg tablet 1 tablet PO DAILY omeprazole 20 mg capsule,delayed release(DR/EC) 20 mg PO DAILY estradiol 0.5 mg tablet 0.5 mg PO DAILY fluticasone propionate 50 mcg/actuation spray,suspension See Rx Instructions .ROUTE .COMPLEX Rx Instructions: as prescribed aspirin 81 mg Capsule 81 mg PO DAILY magnesium 200 mg Tablet 200 mg PO DAILY multivitamin [Daily Multi-Vitamin] Tablet 1 tablet PO DAILY amlodipine 5 mg tablet Follow-up/Referrals: Russell,Anali Aleman APRN [Primary Care Provider, Unknown] Time of Disposition: 12:49 Quality Ismael Coma Scale Eyes: Open Verbal: Oriented and Alert Motor: Follows Commands Ismael Coma Total Score: 15
== END 2025-09-20 12:55 | disposition home or self-care (01) ==
PROVIDERS: Emergency Provider Registered Nurse; PCP Nurse Practitioner
DX: N39.0 Urinary tract infection, site not specified (principal); K21.9 Gastro-esophageal reflux disease without esophagitis; I10 Essential (primary) hypertension
CPT/HCPCS: 87077; 87086; 87186; 99213; G0463